=== PATIENT | male | born 1970 | race Caucasian/White ===

== ENCOUNTER 2019-11-29 12:46 | Emergency (ER) | payer OTHER, SELFPAY ==
[2019-11-29 12:56] VITALS: BP 112/68; PULSE 92; RESP 20; TEMP 36.9; O2SAT 100
--- NOTE | 2019-11-29 13:01 | ED.URI ---
HPI - URI/Sore Throat General Chief Complaint: Upper Respiratory Infection Stated Complaint: diarrhea/cough/sneezing Time Seen by Provider: 11/29/19 13:01 Source: patient and RN notes reviewed History of Present Illness HPI Narrative: Patient is a 49-year-old male that presents the urgent care with complaints of diarrhea, sneezing, cough. Patient states his symptoms started on Friday and he is also had some chills and sweats without known fever. Patient denies any abdominal pain, nausea, vomiting. States that he is taking ibuprofen. States that his last bowel movement was at 3 AM. States that his last meal prior to the diarrhea was sandwich and chips. Denies any other acute complaints. No acute distress noted. Patient states his symptoms do seem to be improving. Patient aware of the plan of care. Related Data Home Medications Medication Instructions Recorded Confirmed ibuprofen 200 mg PO Q6H PRN 11/29/19 11/29/19 Allergies Allergy/AdvReac Type Severity Reaction Status Date / Time No Known Allergies Allergy Verified 11/29/19 13:04 Review of Systems Review of Systems: Narrative: CONSTITUTIONAL: Reports of chills and sweats without known fever EYES: Denies visual changes, redness, or discharge. ENT: Reports of rhinorrhea and sneezing CARDIOVASCULAR: Denies chest pain, palpitations, or edema. RESPIRATORY: Reports of cough without dyspnea GASTROINTESTINAL: Reports of diarrhea which seems to be improving; denies abdominal pain, nausea, vomiting GENITOURINARY: Denies dysuria or hematuria. SKIN: Denies rash or itching. MUSCULOSKELETAL: Denies back pain, joint pain, or myalgia. NEUROLOGIC: Denies headache, numbness, or weakness. PMFSH Comments At the time of my signature, I reviewed and agree with the nursing past medical, surgical, social, and family history. There is no relevant family history pertinent to the patient complaint. Exam Narrative: Exam Narrative: GENERAL: This is a well-nourished, well-developed patient, in no apparent distress. HEAD: normocephalic, atraumatic. EYES: PERRL. Sclera clear/white. Vision is grossly intact. EARS: External ears normal, auditory canals clear and without drainage, TMs normal without perforation. Hearing grossly intact. NOSE: External nose normal with no obvious nasal discharge, nares without redness, no rhinorrhea. THROAT: Mucous membranes moist, posterior pharynx clear. NECK: Neck supple CARDIOVASCULAR: Regular rate and rhythm without murmurs, gallops, or rubs. RESPIRATORY: Clear to auscultation. Breath sounds equal bilaterally. No wheezes, rales, or rhonchi. GASTROINTESTINAL: Abdomen soft, mild left lower tenderness, nondistended. Bowel sounds are hyperactive. No hepato-splenomegaly, or palpable masses. No guarding. SKIN: warm, intact with no suspicious lesions or rash, good texture and turgor. NEURO: awake, alert, and oriented to person, place and time. There were no obvious focal neurologic abnormalities. EXTREMITIES: No clubbing, cyanosis, or edema. BACK: Negative bilateral CVA tenderness Course Vital Signs Vital signs: Vital Signs Temperature 98.5 F 11/29/19 12:56 Pulse Rate 92 11/29/19 12:56 Respiratory Rate 11/29/19 12:56 Blood Pressure 112/68 11/29/19 12:56 Pulse Oximetry 100 11/29/19 12:56 Temperature 98.5 F 11/29/19 12:56 Pulse Rate 92 11/29/19 12:56 Respiratory Rate 11/29/19 12:56 Blood Pressure 112/68 11/29/19 12:56 Pulse Oximetry 100 11/29/19 12:56 Reviewed MDM - URI/Sore Throat MDM Narrative Medical decision making narrative: Advised the patient to increase water intake and rest. Eat a bland diet. May use [id number] Imodium as needed for diarrhea. May continue to use [id number] ibuprofen/Tylenol as needed. If you develop any increase in symptoms associated with abdominal pain, persistent diarrhea, nausea, vomiting, high fevers?go to the emergency room. Follow-up with PCP within 2 to 5 days or for wo
== END 2019-11-29 13:28 | disposition home or self-care (01) ==
PROVIDERS: Emergency Provider Nurse Practitioner Family
DX: K52.9 Noninfective gastroenteritis and colitis, unspecified (principal); B34.9 Viral infection, unspecified
CPT/HCPCS: 99211; G0463

== ENCOUNTER 2020-11-16 14:49 | Outpatient (CLI) | payer OTHER, SELFPAY ==
--- NOTE | ~2020-11-16 | XR_ITS ---
EXAMINATION: XR lumbar spine 2-3V DATE: 11/16/2020 16:12 INDICATION: Low back pain TECHNIQUE: Anteroposterior and lateral views of the lumbar spine, and cone-down lateral view of the l umbosacral junction were obtained. COMPARISON: CT dated 03/06/2018 FINDINGS: 2-3 mm retrolisthesis L5 on S1. Unchanged minimal likely physiologic anterior wedging at T12 and L1. Mild disc height loss with mild degenerative endplate changes at T10-11 T12 and T12-L1. Remaining lum bar vertebral body and disc heights are normal. Mild bilateral facet osteoarthritis at L5-S1. Sacrum and bilateral sacral joints are normal. Normal bowel gas pattern. IMPRESSION: 1. No significant change in mild lower thoracic and lumbosacral spondylosis. Reviewed, dictated and finalized at location A. QUOTING OPERATOR
[2020-11-16 15:18] LABS: Anion Gap 7 mmol/L (8-16); Blood Urea Nitrogen 7 mg/dL (9-20); Calcium 9.4 mg/dL (8.4-10.2); Carbon Dioxide 28 mmol/L (22-30); Chloride 104 mmol/L (98-107); Cholesterol 190 mg/dL (0-200); Estimated Glomerular Filt Rate > 60; Glucose 129 mg/dL (75-110); HDL Direct 54 mg/dL; Potassium 3.8 mmol/L (3.4-5.0); Sodium 139 mmol/L (137-145); Triglycerides 97 mg/dL (<150)
[2020-11-16 15:29] LABS: LDL Cholesterol Direct 123 mg/dL
== END 2020-11-16 14:50 | disposition home or self-care (01) ==
PROVIDERS: PCP Family Medicine; Visit Provider Nurse Practitioner Family
DX: Z13.1 Encounter for screening for diabetes mellitus (principal); Z13.220 Encounter for screening for lipoid disorders; M47.896 Other spondylosis, lumbar region
CPT/HCPCS: 36415; 72100; 80048; 80061

== ENCOUNTER → 2020-11-29 11:15 | Outpatient (CLI) | payer OTHER, SELFPAY ==
--- NOTE | ~2020-11-29 | MR_ITS ---
EXAMINATION: MR lumbar spine wo con DATE: 11/29/2020 11:51 INDICATION: Low back pain. TECHNIQUE: Magnetic resonance imaging (MRI) of the lumbar spine was performed without intravenous con trast. Sequences included sagittal T2-weighted FSE, sagittal T2-weighted FS FSE, sagittal T1-weighted FSE, and axial T2-weighted FSE. COMPARISON: Lumbar spine radiographs 11/16/2020 FINDINGS: There is 5 degrees dextrocurvature of thoracolumbar spine. There are Schmorl's nodes at T11 -T12 and T12-L1. Intervertebral disc heights are normal in lumbar spine. The distal spinal cord signa l intensity is normal. The conus medullaris is at L1. The following disc levels are specifically disc ussed: L1-L2: The disc does not extend beyond the endplate margin. There is mild bilateral facet joint osteo arthritis. There is no neural foraminal stenosis. There is no central canal stenosis. L2-L3: The disc does not extend beyond the endplate margin. There is no facet joint osteoarthritis. T here is no neural foraminal stenosis. There is no central canal stenosis. L3-L4: The disc does not extend beyond the endplate margin. There is mild left facet joint osteoarthr itis. There is no neural foraminal stenosis. There is no central canal stenosis. L4-L5: The disc is mildly bulging. There is severe bilateral facet joint osteoarthritis. There is mil d bilateral neural foraminal stenosis. There is no central canal stenosis. L5-S1: The disc does not extend beyond the endplate margin. There is moderate bilateral facet joint o steoarthritis. There is mild bilateral neural foraminal stenosis. There is no central canal stenosis. IMPRESSION: 1. Mild lumbar spondylosis. Reviewed, dictated and finalized at location A. D LEADER IMPRESSION: 1. Mild lumbar spondylosis.
== END ==
PROVIDERS: PCP Family Medicine; Visit Provider Nurse Practitioner Family
DX: M47.896 Other spondylosis, lumbar region (principal)
CPT/HCPCS: 72148

== ENCOUNTER 2022-07-16 15:52 | Emergency (ER) | payer OTHER, SELFPAY ==
--- NOTE | ~2022-07-16 | CT_ITS ---
EXAMINATION: CT abdomen pelvis wo con DATE: 07/16/2022 17:50 INDICATION: left flank pain TECHNIQUE: Computed tomography (CT) of the abdomen and pelvis was performed without intravenous contr ast. Automated exposure control and iterative reconstruction technique were employed. The dose-length product was 301.65 mGy-cm. COMPARISON: 03/06/2018. FINDINGS: Lower thorax: Unremarkable Liver: Enlarged. Fatty infiltration. Biliary/Gallbladder: Gallbladder is normal. No bile duct dilation. Pancreas: No mass or duct dilation. Spleen: Normal. Adrenals:No mass. Kidneys: Nonobstructive 3 mm mid pole right and punctate upper pole left calculi. No suspicious mass. No hydronephrosis. GI tract: No small or large bowel dilation. Normal appendix. Mesentery/Peritoneum: No ascites, mass, or free air. Retroperitoneum: No mass. Atherosclerotic abdominal aortic and/or arterial calcifications. Pelvis: Pelvic organs are within normal limits. Soft Tissues: Soft tissues and body wall unremarkable. Bones: No acute osseous finding. IMPRESSION: No CT evidence of obstructive uropathy. Hepatomegaly. Nonobstructive nephrolithiasis. Steatosis. Reviewed, dictated and finalized at location K. IMPRESSION: No CT evidence of obstructive uropathy. Hepatomegaly. Nonobstructive nephrolith iasis. Steatosis.
[2022-07-16 15:58] VITALS: BP 147/90; PULSE 87; RESP 14; TEMP 36.6; O2SAT 99
[2022-07-16 16:16] LABS: Basophils Absolute Auto 0.1 K/mm3 (0.0-0.1); Basophils Percent Auto 0.7 % (0.2-1.2); Eosinophils Absolute Auto 0.1 K/mm3 (0-0.3); Eosinophils Percent Auto 1.3 % (0-4.4); Immature Granulocyte Absolute 0.03 K/mm3 (0.00-0.031); Immature Granulocyte Percent A 0.4 % (0-0.5); Lymphocytes Percent Auto 39.5 % (18.3-44.2); Mean Corpuscular HGB Conc 34.8 g/dl (32-36); Mean Corpuscular Hemoglobin 38.4 pg (26-34); Mean Corpuscular Volume 110.3 fl (80-100); Mean Platelet Volume 9.8 fl (7.4-10.4); Monocytes Absolute Auto 0.6 K/mm3 (0.1-0.6); Monocytes Percent Auto 7.8 % (2.6-8.5); Neutrophils Absolute Auto 3.6 K/mm3 (1.3-6.7); Neutrophils Percent Auto 50.3 % (45.5-73.1); Platelet Count Result 254 k/mm3 (150-375); Red Blood Count 4.17 M/mm3 (4.6-6.20); Red Cell Distribution Width 12.7 % (11.5-14.5); White Blood Count 7.1 K/mm3 (4.5-10.0)
[2022-07-16 16:28] LABS: Alanine Aminotransferase 49 U/L (6-50); Albumin Level 4.6 g/dL (3.5-5.1); Alkaline Phosphatase 79 U/L (38-126); Anion Gap 14 mmol/L (8-16); Aspartate Amino Transferase 49 U/L (17-59); Blood Urea Nitrogen 5 mg/dL (9-20); Calcium 9.3 mg/dL (8.4-10.2); Carbon Dioxide 18 mmol/L (22-30); Chloride 107 mmol/L (98-107); Estimated CRCL calculation 74 ml/min; Estimated Glomerular Filt Rate > 60; Glucose 157 mg/dL (65-110); Potassium 3.5 mmol/L (3.4-5.0); Sodium 139 mmol/L (137-145)
[2022-07-16 16:42] LABS: Appearance Urine Clear (Clear); Bilirubin Urine 1+ (Negative); Blood Urine 1+ (Negative); Color Urine Yellow (Yellow); Glucose Urine UA Negative (Negative); Ketones Urine Negative (Negative); Leukocyte Esterase Ur Negative LEU/UL (Negative); Nitrate Urine Negative (Negative); Protein Urine 1+ mg/dL (Negative); Specific Grav Ur 1.025 (1.001-1.035); pH Urine 5.5 (5.0-9.0)
[2022-07-16 16:57] LABS: Mucus Urine Few /lpf; Squamous Epithelial Cell Urine Rare /hpf (Few); WBC Urine 0-3 /hpf
[2022-07-16 17:03] LABS: Add Urine Microscopic? YES
--- NOTE | 2022-07-16 17:29 | ED.BACK ---
HPI - Back Pain/Injury General Chief Complaint: Back Pain/Injury Stated Complaint: Left Flank Pain Time Seen by Provider: 07/16/22 17:25 History of Present Illness HPI Narrative: 51-year-old male with a history of kidney stones presents the emergency room for evaluation of left flank pain has been present for 4 days. Patient states there is no radiation pain and does not remember any injury or trauma. States the pain is worse with certain movements. Denies any decreased urination or difficulty voiding. Related Data Home Medications Medication Instructions Recorded Confirmed ibuprofen 200 mg tablet 800 mg PO Q6H PRN Pain 11/16/20 11/16/20 Allergies Allergy/AdvReac Type Severity Reaction Status Date / Time No Known Allergies Allergy Verified 07/16/22 17:36 Review of Systems Review of Systems: CONSTITUTIONAL: Denies fever, chills, or sweats. EYES: Denies visual changes, redness, or discharge. ENT: Denies rhinorrhea, congestion, sore throat, or otalgia. CARDIOVASCULAR: Denies chest pain, palpitations, or edema. RESPIRATORY: Denies cough or dyspnea. GASTROINTESTINAL: Reports left flank pain GENITOURINARY: Denies dysuria or hematuria. SKIN: Denies rash or itching. MUSCULOSKELETAL: Denies back pain, joint pain, or myalgia. NEUROLOGIC: Denies headache, numbness, dizziness, or weakness. PSYCHIATRIC: Denies anxiety or depression. PMFSH Past Medical History Medical History PTSD (post-traumatic stress disorder) Family History Family History Father No problems noted. Mother No problems noted. Sibling No problems noted. Social History Social History Smoking packs per day: 1 Smoking cigarettes per day: 20.0 Years smoked: 33 Smoking pack-years: 33.00 Smoking status: Current every day smoker Tobacco type: cigarettes Second hand tobacco smoke exposure: No Alcohol intake: current Substance use: never Additional occupation/education comments: Gender identity (if verbalized by the patient): Male Exam Narrative: GENERAL: Well-appearing, well-nourished, no physical limitations, and in no acute distress. HEAD: Normocephalic, atraumatic. EYES: Conjunctivae normal, PERRLA and EOMI. CHEST: Clear to auscultation. No respiratory distress. No wheezes rales or rhonchi. No tenderness. HEART: Regular rate and rhythm. No murmur heard. Normal peripheral pulses. ABDOMEN: Soft, no tenderness, nondistended, normal active bowel sounds. : Normal external male/female exam. BACK: No midline lumbar tenderness, no step-offs or range of motion. Tenderness over the left thoracolumbar fascia and paralumbar spinal muscles EXTREMITIES: Normal range of motion. No edema. No clubbing or cyanosis SKIN: Warm, dry, no rash. No noted wounds NEURO: No focal deficits. Alert and oriented x3. MAEW. CN's II-XI intact bilaterally, normal gait PSYCH: Cooperative. Normal mood and affect. Course Vital Signs Vital signs: Vital Signs Temperature 36.6 C 07/16/22 15:58 Pulse Rate 87 07/16/22 15:58 Respiratory Rate 14 07/16/22 15:58 Blood Pressure 147/90 H 07/16/22 15:58 Pulse Oximetry 99 07/16/22 15:58 Oxygen Delivery Room Air 07/16/22 15:58 Temperature 36.6 C 07/16/22 15:58 Pulse Rate 87 07/16/22 15:58 Respiratory Rate 14 07/16/22 15:58 Blood Pressure 147/90 H 07/16/22 15:58 Pulse Oximetry 99 07/16/22 15:58 Oxygen Delivery Room Air 07/16/22 15:58 MDM - Back Pain/Injury MDM Narrative Medical decision making narrative: 51-year-old male presents emergency room low back pain for 4 days. States the pain was worse with movement. He does have a significant history of kidney stones. CT scan shows no obstructive uropathy. Urine did show some hematuria, this could be from recently passed stone. We
[2022-07-16 18:31] VITALS: BP 122/79; PULSE 95; RESP 16; TEMP 36.8; O2SAT 99
== END 2022-07-16 18:34 | disposition home or self-care (01) ==
PROVIDERS: Emergency Medicine; Emergency Provider Nurse Practitioner Family; PCP Family Medicine
DX: M54.50 Low back pain, unspecified (principal); R31.9 Hematuria, unspecified; F17.210 Nicotine dependence, cigarettes, uncomplicated
CPT/HCPCS: 36415; 74176; 80053; 81001; 85025; 99284

== ENCOUNTER 2022-07-24 10:52 | Outpatient (CLI) | payer OTHER, SELFPAY ==
[2022-07-24 11:22] LABS: Basophils Percent Auto 0.5 % (0.2-1.2); Eosinophils Absolute Auto 0.1 K/mm3 (0-0.3); Eosinophils Percent Auto 1.9 % (0-4.4); Hematocrit 45.4 % (42.0-52.0); Hemoglobin 15.5 g/dL (14.0-18.0); Immature Granulocyte Absolute 0.02 K/mm3 (0.00-0.031); Immature Granulocyte Percent A 0.3 % (0-0.5); Lymphocytes Absolute Auto 2.21 K/mm3 (0.9-3.2); Lymphocytes Percent Auto 37.8 % (18.3-44.2); Mean Corpuscular HGB Conc 34.1 g/dl (32-36); Mean Corpuscular Hemoglobin 38.4 pg (26-34); Mean Corpuscular Volume 112.4 fl (80-100); Mean Platelet Volume 9.8 fl (7.4-10.4); Monocytes Absolute Auto 0.5 K/mm3 (0.1-0.6); Monocytes Percent Auto 9.2 % (2.6-8.5); Neutrophils Absolute Auto 2.9 K/mm3 (1.3-6.7); Neutrophils Percent Auto 50.3 % (45.5-73.1); Platelet Count Result 202 k/mm3 (150-375); Red Blood Count 4.04 M/mm3 (4.6-6.20); Red Cell Distribution Width 12.7 % (11.5-14.5); White Blood Count 5.8 K/mm3 (4.5-10.0)
[2022-07-24 11:55] LABS: Alanine Aminotransferase 41 U/L (6-50); Albumin Level 4.5 g/dL (3.5-5.1); Alkaline Phosphatase 69 U/L (38-126); Anion Gap 10 mmol/L (8-16); Aspartate Amino Transferase 38 U/L (17-59); Bilirubin,Total 0.9 mg/dL (0.2-1.3); Blood Urea Nitrogen 9 mg/dL (9-20); Calcium 9.3 mg/dL (8.4-10.2); Carbon Dioxide 21 mmol/L (22-30); Chloride 108 mmol/L (98-107); Cholesterol 223 mg/dL (0-200); Estimated Glomerular Filt Rate > 60; Glucose 142 mg/dL (65-110); HDL Direct 53 mg/dL; Hemoglobin A1C 4.9 % (<5.7); Potassium 3.9 mmol/L (3.4-5.0); Sodium 139 mmol/L (137-145); Triglycerides 132 mg/dL (<150)
[2022-07-24 11:59] LABS: LDL Cholesterol Direct 156 mg/dL
[2022-07-24 12:22] LABS: Prostate Specific Antigen 0.8 ng/mL (< OR = 4.0)
== END 2022-07-24 10:53 | disposition home or self-care (01) ==
PROVIDERS: PCP Family Medicine; Visit Provider Nurse Practitioner Family
DX: K76.0 Fatty (change of) liver, not elsewhere classified (principal); Z72.0 Tobacco use; R73.09 Other abnormal glucose; Z13.29 Encounter for screening for other suspected endocrine disorder; Z12.5 Encounter for screening for malignant neoplasm of prostate
CPT/HCPCS: 36415; 80053; 80061; 83036; 84153; 84443; 85025; G0103

== ENCOUNTER 2022-12-07 11:30 | Inpatient (IN) | payer OTHER, SELFPAY ==
--- NOTE | ~2022-12-07 | CT_ITS ---
EXAMINATION: CTA chest abdomen pelvis DATE: 12/07/2022 12:10 INDICATION: Severe abdominal pain TECHNIQUE: Computed tomographic angiography (CTA) of the chest, abdomen, and pelvis was performed wit hout and with 100 mL Omnipque-350 intravenous contrast. Maximum intensity projection 3D-reconstructio ns of the aorta and other arteries were constructed by the technologist on a separate workstation. Th e dose-length product (DLP) was 1008.84 mGy-cm. Automated exposure control and iterative reconstructi on technique were employed. COMPARISON: None. FINDINGS: CHEST CTA: There is no aneurysm or dissection of the thoracic aorta. There is mild dependent atelectasis of the lungs. No pleural effusion or pneumothorax. No pathologically enlarged thoracic lymph nodes are ident ified. The heart size is normal. ABDOMEN AND PELVIS CTA: There is no aneurysm or dissection of the abdominal aorta. The celiac axis, superior mesenteric arter y, and inferior mesenteric artery are normal at their origins. There are two left and one right renal arteries. There is calcified atherosclerosis of the distal aorta. There is mild atherosclerosis of t he bilateral common and internal iliac arteries without hemodynamically significant stenosis. The pel zehra vasculature is otherwise unremarkable. The liver, spleen, gallbladder, and adrenal glands are normal. There is decreased enhancement in the head and body of the pancreas. There is peripancreatic fluid extending into the anterior pararenal sp aces and perisplenic space. The kidneys are unremarkable. No pathologically enlarged abdominal or pel zehra lymph nodes are identified. No free intraperitoneal gas or evidence of bowel obstruction. The bill endix is normal. IMPRESSION: 1. Acute pancreatitis, likely interstitial edematous with acute peripancreatic fluid collection. Hypo enhancement of the head and body of the pancreas could be due to edema however early pancreatic necro sis is not excluded. Follow-up is recommended. Reviewed, dictated and finalized at location A. ING LEAD BURNER IMPRESSION: 1. Acute pancreatitis, likely interstitial edematous with acute peripancreatic fluid collection. Hypoenhancement of the head and body of the pancreas could be due to edema however early pancreatic necrosis is not excluded. Follow-up is r ecommended.
--- NOTE | ~2022-12-07 | CT_ITS ---
CT Abdomen and Pelvis with contrast. History: Pancreatitis. Spiral CT of the abdomen and pelvis was performed after the administration of intravenous contrast. 1 00 cc of Omnipaque 350 was administered intravenously without complication. Dose reduction technique was used on this scan by utilizing automated exposure control and iterative reconstruction technique. The dose-length product (DLP) was 1093.65 mGy-cm. COMPARISON: 12/07/2022 Findings: Scans through the lung bases demonstrate [id number] bilateral pleural effusions with mild bibasilar atelectatic change. Minimal groundglass opacity in the lingula and right middle lobe could reflect minimal pulmonary edema. There is extensive peripancreatic fluid and inflammatory change, compatible with acute pancreatitis. There is marked hypoenhancement extensively involving the pancreatic head, neck, and proximal body, c onsistent with pancreatic necrosis in these regions. There is a somewhat more confluent area of fluid along the greater curvature of the stomach, which could reflect an early developing pseudocyst, this area of fluid measuring approximately 7.3 x 6.9 cm in extent (axial image 52 for example). No defini te pseudoaneurysm identified. Fluid extends into the bilateral paracolic gutters, and into the pelvis . There is diffuse fatty infiltration of the liver. There is probable vicarious excretion of contrast i nto the gallbladder from prior contrast enhanced exam. The spleen, adrenals and kidneys are within no rmal limits. No evidence of aortic aneurysm. No lymphadenopathy is seen. There are numerous dilated small bowel loops, likely representing reactive ileus. No free air evident . Images through the pelvis were performed. Urinary bladder unremarkable. Prostate gland and seminal ve sicles are unremarkable. 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 More confluent area of fluid along the greater curvature the stomach measuring 7.3 x 6.9 cm, which co uld reflect an early developing pseudocyst. Multiple dilated small bowel loops, most likely representing reactive ileus. Associated small amount of abdominopelvic ascites. Oewle-dh-pwxpdeov bilateral pleural effusions. Diffuse fatty infiltration of the liver. Reviewed, dictated and finalized at location [facility]. [employer] Impression: Acute pancreatitis with extensive pancreatic necrosis of the pancreatic head, n yuri, and proximal body. More confluent area of fluid along the greater curvature the stomach measuring 7.3 x 6.9 cm, which could reflect an early developing pseudocyst. Multiple dilated small bowel loops, most likely representing reactive ileus. Associated small amount of abdominopelvic ascites. Bqrfg-ri-oyygafws bilateral pleural effusions. Diffuse fatty infiltration of the liver.
[2022-12-07 11:31] VITALS: BP 128/69; PULSE 85; RESP 18; TEMP 36.4; O2SAT 100
--- NOTE | 2022-12-07 11:34 | ECG_ITS ---
Measurements Intervals [place] Rate: 81 P: 52 NV: 167 QRS: 26 QRSD: 94 T: 50 QT: 384 QTc: 447 Interpretive Statements SINUS RHYTHM LOW QRS VOLTAGE IN PRECORDIAL LEADS [QRS DEFLECTION < 1.0 mV IN CHEST LEADS] ABNORMAL ECG NO PREVIOUS ECG AVAILABLE FOR COMPARISON Electronically Signed On 12-07-2022 12:50:48 PUBLIC AFFAIRS DIRECTOR by Douglas Guajardo M.D.
[2022-12-07 11:44] LABS: Basophils Absolute Auto 0.1 K/mm3 (0.0-0.1); Basophils Percent Auto 0.3 % (0.2-1.2); Eosinophils Absolute Auto 0.1 K/mm3 (0-0.3); Eosinophils Percent Auto 0.4 % (0-4.4); Hemoglobin 15.5 g/dL (14.0-18.0); Immature Granulocyte Absolute 0.07 K/mm3 (0.00-0.031); Immature Granulocyte Percent A 0.4 % (0-0.5); Lymphocytes Absolute Auto 4.18 K/mm3 (0.9-3.2); Lymphocytes Percent Auto 23.6 % (18.3-44.2); Mean Corpuscular HGB Conc 34.4 g/dl (32-36); Mean Corpuscular Hemoglobin 36.2 pg (26-34); Mean Corpuscular Volume 105.1 fl (80-100); Mean Platelet Volume 9.9 fl (7.4-10.4); Monocytes Percent Auto 5.5 % (2.6-8.5); Neutrophils Absolute Auto 12.3 K/mm3 (1.3-6.7); Neutrophils Percent Auto 69.8 % (45.5-73.1); Platelet Count Result 249 k/mm3 (150-375); Red Blood Count 4.28 M/mm3 (4.6-6.20); Red Cell Distribution Width 13.8 % (11.5-14.5); White Blood Count 17.7 K/mm3 (4.5-10.0)
[2022-12-07] MEDS: MORPHINE SULFATE (*CRX) 4 MG/ML INJ IV PUSH ×2 (11:50→15:06)
[2022-12-07] MEDS: FAMOTIDINE 20 MG/2 ML VIAL IV PUSH ×2 (11:50→20:35)
[2022-12-07] MEDS: ONDANSETRON INJ 4 MG/2 ML VIAL IV PUSH (11:50)
[2022-12-07 11:57] LABS: Alanine Aminotransferase 27 U/L (6-50); Albumin Level 4.5 g/dL (3.5-5.1); Alkaline Phosphatase 73 U/L (38-126); Anion Gap 11 mmol/L (8-16); Aspartate Amino Transferase 34 U/L (17-59); Bilirubin,Total 0.5 mg/dL (0.2-1.3); Blood Urea Nitrogen 5 mg/dL (9-20); Calcium 8.7 mg/dL (8.4-10.2); Carbon Dioxide 20 mmol/L (22-30); Chloride 107 mmol/L (98-107); Estimated Glomerular Filt Rate > 60; Glucose 148 mg/dL (65-110); Potassium 3.1 mmol/L (3.4-5.0); Sodium 138 mmol/L (137-145)
[2022-12-07 12:10] LABS: Platelet Estimate Adequate (Adequate)
[2022-12-07 12:11] LABS: Anisocytosis 1+ (NORMAL); Schistocytes None Seen (NORMAL)
[2022-12-07 12:12] LABS: Lactic Acid Reflex 4.7 mmol/L (0.7-2.0)
--- NOTE | 2022-12-07 12:16 | ED.ABDPAIN ---
HPI - Abdominal Pain General Chief Complaint: Abdominal Pain Stated Complaint: ABD PAIN, EPIGASTRIC X 30 MIN , 1 EMESIS Time Seen by Provider: 12/07/22 11:34 History of Present Illness HPI narrative: Patient with no medical history presents with severe sudden onset pain to his epigastric area, he has never had symptoms like this in the past, did have an episode of nausea and soft stool. No personal or family history of dissection or aneurysm or arrhythmias. Related Data Allergies Allergy/AdvReac Type Severity Reaction Status Date / Time No Known Allergies Allergy Verified 07/24/22 07:47 Review of Systems Review of Systems: CONST: No fever. HEENT: No sore throat C/V: No chest pain RESP: No cough GI: Reports abdominal pain, nausea, vomiting : No dysuria. M/S: No joint pain. SKIN: No rash. NEURO: [No headache or focal numbness or weakness] PSYCH: [No depression] [facility] Past Medical History Medical History BMI 30.0-30.9,adult PTSD (post-traumatic stress disorder) Family History Family History Father No problems noted. Mother No problems noted. Sibling Hypertension Asthma Social History Social History Smoking packs per day: 1 Smoking cigarettes per day: 20.0 Years smoked: 33 Smoking pack-years: 33.00 Smoking status: Current every day smoker Tobacco type: cigarettes Second hand tobacco smoke exposure: No Alcohol intake: current Substance use: never Substance use type: does not use Living arrangements: with family Occupation/Education: retired Additional occupation/education comments: -[employer] Gender identity (if verbalized by the patient): Male Exam Narrative: EXAMINATION OF ORGAN SYSTEMS/BODY AREAS: Constitutional: Vital signs per nursing GENERAL: Appears to be extremely uncomfortable HEAD: Normal with no signs of head trauma. EYES: EOMI, conjunctiva normal ENT: Hearing grossly intact LUNGS: Nonlabored breathing. HEART: [Regular rate and rhythm] ABD: [Soft], [tender to palpation] to epigastric area and periumbilical region EXT: Normal range of motion SKIN: [No rashes or lesions.] NEURO: [Alert and oriented x 3. No gross focal sensory or strength deficits.] PSYCH: Normal affect Course Vital Signs Vital signs: Vital Signs Temperature 97.6 F 12/07/22 11:31 Pulse Rate 85 12/07/22 11:31 Respiratory Rate 18 12/07/22 11:31 Blood Pressure 128/69 12/07/22 11:31 Pulse Oximetry 100 12/07/22 11:31 Oxygen Delivery Room Air 12/07/22 11:31 Temperature 97.6 F 12/07/22 11:31 Pulse Rate 85 12/07/22 11:31 Respiratory Rate 18 12/07/22 11:31 Blood Pressure 139/82 12/07/22 15:06 Pulse Oximetry 100 12/07/22 15:06 Oxygen Delivery Room Air 12/07/22 11:31 MDM - Abdominal Pain MDM Narrative Medical decision making narrative: Electronic medical record was reviewed. Patient presented to the ED with complaint of [abdominal pain and vomiting]. Vitals [were within acceptable limits]. Physical exam revealed [tenderness to palpation in epigastric and periumbilical abdomen]. Based on the patient's history and physical exam, my differential includes but is not limited to [gastritis, gastroenteritis, cholecystitis, pancreatitis, as well as mesenteric ischemia and dissection given severity of symptoms]. [IV access was established by nursing staff. Patient was given zofran, famotidine, morphine, and IV fluids]. CBC, BMP, lipase, LFTs, bilirubin and alk phos were obtained. Labs were pertinent for lipase >40k, WBC 18, K 3.1 which is repleted, lactic 4.7. [Decision was made to obtain a CT-abdomen to evaluate for acute abdominal process. I did review it indepedently and CT-abdomen per my and radiology interpretation showing acute pancreatitis with fluid collection, and possible necrosis.] I suspe
[2022-12-07] MEDS: LACTATED RINGERS 1,000 ML 999 ML IV CONT ×2 (12:39→16:57)
[2022-12-07 12:43] LABS: Lipase > 40000 U/L (23-300)
[2022-12-07] MEDS: HYDROmorphone HCL INJ (*CRX) 1 MG/ML SYR IV PUSH ×3 (12:43→23:48)
[2022-12-07 12:47] LABS: Magnesium 1.9 mg/dL (1.6-2.3)
[2022-12-07] MEDS: POTASSIUM CHLORIDE INJ 40 MEQ in SODIUM CHLORIDE 0.9% IV 500 ML 130 MEQ IVPB (13:00)
[2022-12-07 13:39] LABS: Influenza A QL RT-PCR Negative (Negative); Influenza B QL RT-PCR Negative (Negative); RSV RNA, RT-PCR Negative (Negative); SARS-CoV-2 RNA PCR Negative
[2022-12-07 14:58] LABS: Reflex Lactic Acid Yes or No Add Lactic
[2022-12-07 15:06] VITALS: BP 139/82; O2SAT 100
[2022-12-07 15:16] VITALS: BP 142/81; O2SAT 99
[2022-12-07 15:31] VITALS: BP 150/81; O2SAT 100
[2022-12-07 16:09] LABS: Lactic Acid 4.7 mmol/L (0.7-2.0)
--- NOTE | 2022-12-07 16:15 | PM.IMHP ---
H&P: HPI History of Present Illness Date/Time: 12/07/22 16:15 Chief Complaint: abdominal pain Narrative: This is a 52-year-old male patient has a history of alcohol abuse. This morning he woke up with severe pain to use epigastric area. The patient stated that he could sleep in got up around 2 or 3 this morning. He started drinking today and that is when the pain started. His white count is 17.7. MCV is 105.1. Potassium is 3.1 he is getting replacement at this time. Lactic is 4.7 and repeat was 4.7. Glucose 148. Lipase greater than 40,000. Influenza A/B COVID RSV are all negative. The patient was given Zofran, Pepcid IV, morphine, lactated Ringer's, and potassium chloride iv. CT of the abdomen pelvis CTA was read as the following. Acute pancreatitis, likely interstitial edematous with acute peripancreatic fluid collection. Hypoenhancement of the head and body of the pancreas could be due to edema however early pancreatic necrosis is not excluded. Follow-up is recommended. The ED provider stated that she did call [facility] surgeon as well as the hospitalist and that the patient could be treated here. [facility] sandi was notified and discussed case with ER provider. The patient was accepted for admission the patient is being admitted to inpatient status on the date of service of 12/07/2022. Review of Systems Review of Systems: see HPI All systems reviewed & are unremarkable except as noted in HPI and below Constitutional: Constitutional: Reports as per HPI and Reports no additional constitutional complaints Eyes: Eyes: Reports as per HPI and Reports no additional eye complaints ENT: Reports system reviewed and no additional complaints, except as documented and Reports Normal hearing present Cardiovascular: Cardiovascular: Reports no additional cardiovascular complaints Respiratory: Respiratory: Reports no additional respiratory complaints and Reports no additional respiratory complaints Gastrointestinal: Gastrointestinal: Reports as per HPI and Reports no additional gastrointestinal complaints Musculoskeletal: Musculoskeletal: Reports no additional musculoskeletal complaints Integumentary/Breasts: Skin/Breast: Reports system reviewed and no additional complaints, except as docu and Reports as per HPI Neurologic: Reports system reviewed and no additional complaints, except as documented, Reports as per HPI and Reports Normal hearing present Psychiatric: Psychiatric: Reports no additional psychiatric complaints and Reports as per HPI Endocrine: Endocrine: Reports no additional endocrine complaints Hematologic/Lymphatic: Hematologic/Lymphatic: Reports no additional hematologic/lymphatic complaints Allergic/Immunologic: Allergic/Immunologic: Reports no additional allergic/immunologic complaints [facility] Past Medical History Medical History (Updated 12/07/22 @ 19:02 by Angelika Mcintyre NP) Alcoholism BMI 30.0-30.9,adult Kidney stone PTSD (post-traumatic stress disorder) Surgical History Surgical History H/O lithotripsy Status post tonsillectomy and adenoidectomy Family History Family History Father No problems noted. Mother No problems noted. Sibling Hypertension Asthma Social History Social History (Updated 12/07/22 @ 19:05 by Angelika Mcintyre NP) Social History: He has two children and is . The patient served in the [employer] and has PTSD now. The patient stated that he drinks every day according to the nurse. However the patient tells me that he might drink 10-12 alcoholic beverages when he drinks. He told me he does not drink every day. Code status full code Smoking packs per day: 1 Smoking cigarettes per day: 20.0 Years smoked: 33 Smoking pack-years: 33.00 Smoking status: Current every day smoker Tobacco type: cigarettes Second hand tobacco smoke exposure: No Al
[2022-12-07] MEDS: diphenhydrAMINE HCl INJ 50 MG/ML VIAL 25 MG IV PUSH (16:42)
[2022-12-07] MEDS: KETOROLAC 30 MG/ML VIAL (*BKC) IV PUSH (16:42)
[2022-12-07] MEDS: LACTATED RINGERS 1,000 ML 125 ML IV CONT ×2 (17:22→23:49)
[2022-12-07 17:23] VITALS: BMI 30.7
--- NOTE | 2022-12-07 18:09 | PC.NURSE ---
pt states that he does not take any medications prescription or OTC
[2022-12-07 20:00] VITALS: PULSE 95
[2022-12-07 22:00] VITALS: BP 154/78; PULSE 87; RESP 14; TEMP 35.6; O2SAT 99
[2022-12-08] VITALS (9 sets, daily range): BP systolic 132–155; BP diastolic 90–91; PULSE 86–126; RESP 14–20; TEMP 36.5–36.6; O2SAT 93–97
[2022-12-08 02:29] LABS: Glucose Point of Care 172 mg/dl (65-105)
[2022-12-08] MEDS: HYDROmorphone HCL INJ (*CRX) 1 MG/ML SYR IV PUSH ×4 (06:40→20:28)
[2022-12-08 08:09] LABS: Basophils Percent Auto 0.2 % (0.2-1.2); Hemoglobin 16.4 g/dL (14.0-18.0); Immature Granulocyte Absolute 0.06 K/mm3 (0.00-0.031); Immature Granulocyte Percent A 0.3 % (0-0.5); Lymphocytes Absolute Auto 0.94 K/mm3 (0.9-3.2); Lymphocytes Percent Auto 5.1 % (18.3-44.2); Mean Corpuscular HGB Conc 33.5 g/dl (32-36); Mean Corpuscular Volume 107.7 fl (80-100); Mean Platelet Volume 10.6 fl (7.4-10.4); Monocytes Percent Auto 5.5 % (2.6-8.5); Neutrophils Absolute Auto 16.5 K/mm3 (1.3-6.7); Neutrophils Percent Auto 88.9 % (45.5-73.1); Platelet Count Result 170 k/mm3 (150-375); Red Blood Count 4.55 M/mm3 (4.6-6.20); Red Cell Distribution Width 14.2 % (11.5-14.5); White Blood Count 18.5 K/mm3 (4.5-10.0)
[2022-12-08 08:26] LABS: Albumin Level 3.8 g/dL (3.5-5.1); Alkaline Phosphatase 62 U/L (38-126); Anion Gap 8 mmol/L (8-16); Aspartate Amino Transferase 58 U/L (17-59); Bilirubin,Total 1.4 mg/dL (0.2-1.3); Calcium 8.1 mg/dL (8.4-10.2); Carbon Dioxide 19 mmol/L (22-30); Chloride 110 mmol/L (98-107); Estimated CRCL calculation 76 ml/min; Estimated Glomerular Filt Rate > 60; Glucose 151 mg/dL (65-110); Magnesium 1.4 mg/dL (1.6-2.3); Phosphorus 2.6 mg/dL (2.5-4.5); Potassium 5.8 mmol/L (3.4-5.0); Sodium 137 mmol/L (137-145)
[2022-12-08 08:27] LABS: Blood Urea Nitrogen 13 mg/dL (9-20)
[2022-12-08 08:29] LABS: Lactic Acid Reflex 4.9 mmol/L (0.7-2.0)
[2022-12-08 08:33] LABS: Alanine Aminotransferase 41 U/L (6-50)
[2022-12-08 09:03] LABS: Lipase 7222 U/L (23-300)
[2022-12-08 09:49] LABS: Free T4 Free Thyroxine Reflex 1.15 ng/dL (0.78-2.19)
[2022-12-08] MEDS: LACTATED RINGERS 1,000 ML 125 ML IV CONT (10:37)
[2022-12-08] MEDS: FAMOTIDINE 20 MG/2 ML VIAL IV PUSH ×2 (10:40→20:29)
[2022-12-08] MEDS: LORazepam INJ (*CRX) 2 MG/ML VIAL 1 MG IV PUSH (10:40)
[2022-12-08] MEDS: THIAMINE HCL 200 MG/2 ML VIAL 100 MG IV PUSH (10:40)
[2022-12-08] MEDS: FOLIC ACID 1 MG/0.2 ML INJ IV PUSH (10:40)
[2022-12-08 11:03] LABS: Reflex Lactic Acid Yes or No Add Lactic
[2022-12-08] MEDS: LACTATED RINGERS 1,000 ML 150 ML IV CONT ×2 (11:30→18:15)
[2022-12-08 11:34] LABS: Lactic Acid 4.5 mmol/L (0.7-2.0)
[2022-12-08 12:08] LABS: Glucose Point of Care 179 mg/dl (65-105)
[2022-12-08] MEDS: metroNIDAZOLE 500 MG/ISO 100ML 500 MG/100 ML BAG 100 MG IVPB ×2 (14:17→22:37)
--- NOTE | 2022-12-08 15:33 | PM.IMPN ---
Progress Note: A&P Assessment and Plan (1) Acute alcoholic pancreatitis: Code(s): K85.20 - Alcohol induced acute pancreatitis without necrosis or infection Status: Acute Plan Acute pancreatitis with possible infected necrosis and peripancreatic fluid collection Lipase 40k on admission and CT report reviewed NPO, Continue IVF, contineu Levaquin and Flagyl PRN pain control GI and Gen sugery consulted Alcohol abuse continue CIWA protocol Counseled Tobacco abuse Counseled about cessaiton Hypokalemia replaced, serum mag monitor DVT prophylaxis Subjective Date/time seen: 12/08/22 15:33 Patient presented to the ER with abd pain and vomiting, CT AP in the ER showed pacreatitis with possible necrosis and peripancreatic fluid collection. GI and Gen Surgery consulted. Lacitc acid this morning elevated and patient started on Levaquin and Flagyl. Exam Narrative: GENERAL: Appears to be extremely uncomfortable HEAD:? Normal with no signs of head trauma. EYES:? EOMI, conjunctiva normal ENT:? Hearing grossly intact LUNGS:? Nonlabored breathing. HEART:? [Regular rate and rhythm] ABD:? [Soft], [tender to palpation] to epigastric area and periumbilical region EXT: Normal range of motion SKIN:? [No rashes or lesions.] NEURO: [Alert and oriented x 3. No gross focal sensory or strength deficits.] PSYCH: Normal affect Objective Data Vital Signs Vital Signs: Vital Signs - 24 hr 12/07/22 18:02 12/07/22 20:00 12/08/22 00:00 Temperature Pulse Rate 86 Pulse Rate [Right Monitor] 95 Respiratory Rate Blood Pressure Pulse Oximetry Oxygen Delivery Room Air 12/08/22 00:00 12/07/22 22:00 12/08/22 04:00 Temperature 96.1 F L Pulse Rate 87 86 Pulse Rate [Right Monitor] 86 Respiratory Rate 14 Blood Pressure 154/78 H Pulse Oximetry 99 Oxygen Delivery 12/08/22 04:00 12/08/22 06:00 12/08/22 08:00 Temperature 97.9 F Pulse Rate 87 100 Pulse Rate [Right Monitor] 86 Respiratory Rate 14 Blood Pressure 155/91 H Pulse Oximetry 97 Oxygen Delivery 12/08/22 08:00 12/08/22 14:00 Temperature 97.7 F Pulse Rate 126 H Pulse Rate [Right Monitor] Respiratory Rate 20 Blood Pressure 132/90 Pulse Oximetry 93 Oxygen Delivery Room Air Intake/Output Intake/Output: Intake & Output 12/05/22 12/06/22 12/07/22 12/08/22 23:59 23:59 23:59 23:59 Intake Total 1999 1150 Balance 1999 1150 Meds/Results Medications: Active Medications Generic Name Dose Route Start Last Admin Trade Name Freq PRN Reason Stop Dose Admin Diphenhydramine HCl 25 mg 12/07/22 19:06 Diphenhydramine Hcl Inj 50 Mg/Ml Vial IV PUSH Q4H PRN Itching Famotidine 20 mg 12/07/22 21:00 12/08/22 10:40 Famotidine 20 Mg/2 Ml Vial IV PUSH 20 mg Q12HR GALLO Administration Folic Acid 1 mg 12/08/22 09:00 12/08/22 10:40 Folic Acid 1 Mg/0.2 Ml Inj IV PUSH 1 mg QAM GALLO Administration Hydromorphone HCl 1 mg 12/07/22 18:13 12/08/22 10:40 Hydromorphone Hcl Inj (*Crx) 1 Mg/Ml Syr IV PUSH 1 mg Q3H PRN Administration Pain Rated 7-10 Levofloxacin/Dextrose 750 mg in 150 mls @ 100 mls/hr 12/08/22 09:45 12/08/22 14:19 Levaquin 750 Mg/D5w 150 Ml IVPB Infused DAILY GALLO Infusion Metronidazole 500 mg in 100 mls @ 100 mls/hr 12/08/22 14:00 12/08/22 14:17 Flagyl 500 Mg/Iso Soln 100 Ml IVPB 100 mls/hr Q8HR GALLO Administration Lactated Ringer's 1,000 mls @ 150 mls/hr 12/08/22 11:41 12/08/22 12:44 Lr - Lactated Ringers Iv IV CONT Not Given .Q6H40M GALLO Lorazepam 1 mg 12/07/22 18:12 12/08/22 10:40 Lorazepam Inj (*Crx) 2 Mg/Ml Vial IV PUSH 1 mg Q6H PRN Administration Anxiety Nicotine 1 patch 12/08/22 09:00 12/08/22 10:36 Nicotine (*Pbkc) 21 Mg Patch TRANSDERM Not Given QAM GALLO Ondansetron HCl 4 mg 12/07/22 18:14 Ondansetron Inj 4 Mg/2 Ml Vial IV PUSH Q6H PRN Nausea And
[2022-12-08 16:05] LABS: Lactic Acid Reflex 3.6 mmol/L (0.7-2.0)
--- NOTE | 2022-12-08 18:03 | WPDCN ---
Assessment and Plan Assessment and plan (1) Acute alcoholic pancreatitis: Code(s): K85.20 - Alcohol induced acute pancreatitis without necrosis or infection Status: Acute Assessment and Plan: The patient has acute alcoholic induced pancreatitis. Supportive management with IV fluid hydration and IV antibiotics and IV pain management is indicated at this time. The CT scan suggests possible pancreatic necrosis and if he develops infected pancreatic necrosis then he should be transferred to a tertiary care facility where there is a hepatobiliary surgeon he can manage and operatively treat him with debridement of the necrotic and infected pancreatic tissue. Continue bowel rest for now. I discussed with him the possible development of pancreatic pseudocyst and chronic scarring of the pancreas resulting in diabetes and chronic abdominal pain. HPI Data of Consult Date/Time: 12/08/22 18:03 Requesting Physician: Gustavo Phillips MD Primary Care Provider: Franklin Manzano MD Consult Narrative Reason for consult: Acute pancreatitis Narrative: Christophe Weeks Jr. is a 52 year old male who was admitted to the hospital with a one-day history of severe epigastric abdominal pain. No nausea or vomiting. He admits to ingesting 4-5 drinks of hard liquor almost on a daily basis. He smokes a pack of cigarettes per day. He admitted to drinking several drinks of hard liquor prior to developing abdominal pain. He has never been admitted to the hospital for pancreatitis in the past. Workup in emergency room showed a lipase level of 40,000 [place] [address] [place] scan abdomen pelvis showed evidence of peripancreatic inflammation and fluid collections associated with some hypo enhancement of the parenchyma of the pancreas. This raised the possibility of pancreatic necrosis. The patient continues to need doses of IV pain medications and he has been started on IV antibiotics. He is being kept NPO for now. His lipase level has dropped down to 8000 today. Review of Systems Review of Systems: The remainder of the review of systems to include constitutional, HEENT, cardiovascular, respiratory, GI, , integumentary, musculoskeletal, endocrine, immunologic, hematologic, psychiatric, and neurologic are all negative except for which is mentioned above in the HPI. [facility] Past Medical History Medical History Alcoholism BMI 30.0-30.9,adult Kidney stone PTSD (post-traumatic stress disorder) Surgical History Surgical History H/O lithotripsy Status post tonsillectomy and adenoidectomy Family History Family History Father No problems noted. Mother No problems noted. Sibling Hypertension Asthma Social History Social History Social History: He has two children and is . The patient served in the [employer] and has PTSD now. The patient stated that he drinks every day according to the nurse. However the patient tells me that he might drink 10-12 alcoholic beverages when he drinks. He told me he does not drink every day. Code status full code Smoking packs per day: 1 Smoking cigarettes per day: 20.0 Years smoked: 33 Smoking pack-years: 33.00 Smoking status: Current every day smoker Tobacco type: cigarettes Second hand tobacco smoke exposure: No Alcohol intake: current Drinks per week: 15 Substance use: never Substance use type: does not use Lack of Transportation: YES Lack of Food: Sometimes True Current Housing: I Have Housing Concerned About Future Housing: No Difficulty Paying Gas/Electric Bills: No Difficulty Paying for Meds: No Currently Unemployed: YES Education: Associate Degree Difficulty w/ Childcare or Family Care: No Living
[2022-12-08 18:11] LABS: Glucose Point of Care 148 mg/dl (65-105)
[2022-12-09] VITALS (9 sets, daily range): BP systolic 140–146; BP diastolic 68–90; PULSE 104–119; RESP 14–20; TEMP 36.6–37.3; O2SAT 92–93
[2022-12-09] MEDS: LACTATED RINGERS 1,000 ML 150 ML IV CONT ×3 (03:19→21:05)
[2022-12-09] MEDS: HYDROmorphone HCL INJ (*CRX) 1 MG/ML SYR IV PUSH ×5 (03:20→21:03)
[2022-12-09] MEDS: metroNIDAZOLE 500 MG/ISO 100ML 500 MG/100 ML BAG 100 MG IVPB ×3 (05:20→21:07)
[2022-12-09 05:38] LABS: Glucose Point of Care 126 mg/dl (65-105)
[2022-12-09 06:32] LABS: Hematocrit 42.8 % (42.0-52.0); Hemoglobin 14.3 g/dL (14.0-18.0); Mean Corpuscular HGB Conc 33.4 g/dl (32-36); Mean Corpuscular Hemoglobin 35.7 pg (26-34); Mean Corpuscular Volume 106.7 fl (80-100); Mean Platelet Volume 10.8 fl (7.4-10.4); Platelet Count Result 111 k/mm3 (150-375); Red Blood Count 4.01 M/mm3 (4.6-6.20); Red Cell Distribution Width 14.3 % (11.5-14.5); White Blood Count 13.5 K/mm3 (4.5-10.0)
[2022-12-09 06:45] LABS: Alanine Aminotransferase 31 U/L (6-50); Albumin Level 3.1 g/dL (3.5-5.1); Alkaline Phosphatase 42 U/L (38-126); Anion Gap 3 mmol/L (8-16); Aspartate Amino Transferase 92 U/L (17-59); Blood Urea Nitrogen 23 mg/dL (9-20); Carbon Dioxide 21 mmol/L (22-30); Chloride 111 mmol/L (98-107); Estimated CRCL calculation 70 ml/min; Estimated Glomerular Filt Rate 58; Glucose 125 mg/dL (65-110); Potassium 4.3 mmol/L (3.4-5.0); Sodium 135 mmol/L (137-145)
[2022-12-09 06:53] LABS: Lipase 3846 U/L (23-300)
[2022-12-09 07:18] LABS: Band Neutrophils Percent 21 % (0-6); Lymphocytes Absolute Manual 0.54 K/mm3 (1.1-4.5); Monocytes Absolute Manual 0.13 K/mm3 (0.1-0.90); Monocytes Percent Manual 1 % (3-9); Neutrophils Absolute Manual 12.82 K/mm3 (1.3-6.7); Neutrophils Percent Manual 74 % (46-73); Total Cells Counted 100
[2022-12-09 07:19] LABS: Schistocytes None Seen (NORMAL)
[2022-12-09] MEDS: ENOXAPARIN 40 MG/0.4 ML SYRINGE SUB-Q (08:09)
[2022-12-09] MEDS: FOLIC ACID 1 MG/0.2 ML INJ IV PUSH (08:10)
[2022-12-09] MEDS: FAMOTIDINE 20 MG/2 ML VIAL IV PUSH ×2 (08:10→21:05)
[2022-12-09] MEDS: THIAMINE HCL 200 MG/2 ML VIAL 100 MG IV PUSH (08:12)
[2022-12-09 11:37] LABS: Glucose Point of Care 134 mg/dl (65-105)
--- NOTE | 2022-12-09 13:28 | PM.IMPN ---
Progress Note: A&P Assessment and Plan (1) Acute alcoholic pancreatitis: Code(s): K85.20 - Alcohol induced acute pancreatitis without necrosis or infection Status: Acute Plan Acute pancreatitis with possible infected necrosis and peripancreatic fluid collection Lipase 40k on admission and CT report reviewed NPO, Continue IVF, continue Levaquin and Flagyl PRN pain control GI and Gen surgery consulted lipase is 3000, [place] [address] continue to monitor Alcohol abuse continue CIWA protocol Counseled Tobacco abuse Counseled about cessation Hypokalemia replaced, serum mag monitor DVT prophylaxis Subjective Date/time seen: 12/09/22 13:28 52-year-old male patient has a history of alcohol abuse.? This morning he woke up with severe pain to use epigastric area.? The patient stated that he could sleep in got up around 2 or 3 this morning.? He started drinking today and that is when the pain started.? His white count is 17.7.? MCV is 105.1.? Potassium is 3.1 he is getting replacement at this time.? Lactic is 4.7 and repeat was 4.7.? Glucose 148.? Lipase greater than 40,000. Influenza A/B COVID RSV are all negative.? The patient was given Zofran, Pepcid IV, morphine, lactated Ringer's, and potassium chloride iv.? CT of the abdomen pelvis CTA was read as the following. Acute pancreatitis Pt still having abdominal pains, lipase is @3000 today, [place] [id number], continue to watch clinically Review of Systems Review of Systems: Abdominal pains 04/12 All systems reviewed & are unremarkable except as noted in HPI and below Exam Narrative: GENERAL: Appears to be extremely uncomfortable HEAD:? Normal with no signs of head trauma. EYES:? EOMI, conjunctiva normal ENT:? Hearing grossly intact LUNGS:? Nonlabored breathing. HEART:? [Regular rate and rhythm] ABD:? [Soft], [tender to palpation] to epigastric area and periumbilical region EXT: Normal range of motion SKIN:? [No rashes or lesions.] NEURO: [Alert and oriented x 3. No gross focal sensory or strength deficits.] Objective Data Vital Signs Vital Signs: Vital Signs - 24 hr 12/08/22 14:00 12/08/22 16:00 12/08/22 21:36 Temperature 36.5 C 36.6 C Pulse Rate 126 H 105 H 114 H Pulse Rate [Right Monitor] Respiratory Rate 20 18 Blood Pressure 132/90 134/90 Pulse Oximetry 93 93 Oxygen Delivery 12/08/22 20:00 12/08/22 20:00 12/09/22 00:00 Temperature Pulse Rate 102 H 109 H Pulse Rate [Right Monitor] 106 H Respiratory Rate Blood Pressure Pulse Oximetry Oxygen Delivery 12/09/22 00:00 12/09/22 04:00 12/09/22 06:00 Temperature 36.6 C Pulse Rate 110 H 119 H Pulse Rate [Right Monitor] 109 H Respiratory Rate 16 Blood Pressure 141/90 H Pulse Oximetry 93 Oxygen Delivery 12/09/22 08:00 12/09/22 08:00 Temperature Pulse Rate Pulse Rate [Right Monitor] 104 H Respiratory Rate Blood Pressure Pulse Oximetry Oxygen Delivery Room Air Intake/Output Intake/Output: Intake & Output 12/06/22 12/07/22 12/08/22 12/09/22 23:59 23:59 23:59 23:59 Intake Total 1999 3250 2900 Output Total Balance 1999 3250 2898 Meds/Results Medications: Active Medications Generic Name Dose Route Start Last Admin Trade Name Freq PRN Reason Stop Dose Admin Diphenhydramine HCl 25 mg 12/07/22 19:06 Diphenhydramine Hcl Inj 50 Mg/Ml Vial IV PUSH Q4H PRN Itching Enoxaparin Sodium 40 mg 12/09/22 09:00 12/09/22 08:09 Enoxaparin 40 Mg/0.4 Ml Syringe SUB-Q 40 mg DAILY GALLO Administration Famotidine 20 mg 12/07/22 21:00 12/09/22 08:10 Famotidine 20 Mg/2 Ml Vial IV PUSH 20 mg Q12HR GALLO Administration Folic Acid 1 mg 12/08/22 09:00 12/09/22 08:10 Folic Acid 1 Mg/0.2 Ml Inj IV PUSH 1 mg QAM GALLO Administration Hydromorphone HCl 1 mg 12/07/22 18:13 12/09/22 08:09 Hydromorphone Hcl Inj (*Crx) 1 Mg/Ml Syr IV PUSH 1 mg Q3H PRN Administration P
--- NOTE | 2022-12-09 13:39 | PM.PNGS ---
Progress Note: A&P Assessment and Plan (1) Acute alcoholic pancreatitis: Code(s): K85.20 - Alcohol induced acute pancreatitis without necrosis or infection Status: Acute Assessment and Plan: Acute alcoholic induced pancreatitis that is slowly improving. Lipase is down to 3,000 today and WBC is trending down. He is still having a fair amount of abdominal pain that is being controlled with the IV analgesics. Continue with IV fluid hydration, IV antibiotics, and pain management. Will start clear liquids today. Repeat labs tomorrow. If he develops infected pancreatic necrosis, then he will need to be transferred to a tertiary care facility where he could be managed by a hepatobiliary surgeon. Will continue to follow along. (2) Alcoholism: Code(s): F10.20 - Alcohol dependence, uncomplicated Status: Acute Assessment and Plan: CIWA score at 9 today and up to 12 last night. He has Ativan PRN that was given yesterday morning but no scheduled or other PRN medications for withdrawal. Discussed with Hospitalist who was going to potentially add Librium. Plan I have discussed the patient's case and plan of care with Dr. Taylor. Subjective Subjective Date/Time Seen: 12/09/22 13:39 Patient reports: pain is less, voiding w/o difficulty, flatus, no bowel movement and afebrile Interval history: Chart reviewed. Patient is still having generalized abdominal pain, but he feels it has improved slightly compared to yesterday. He denies any nausea or vomiting. He is receiving IV Dilaudid for pain, which he feels is helping to control his abdominal pain. Deep breathing seems to aggravate his pain. He is very uncomfortable when seen now, but has recently requested pain medication from the nurse. His lipase is down to 3,846 and WBC count down to 13.5 today. Exam Const: General: awake, ill appearing and uncomfortable Orientation/consciousness: patient oriented x3 Resp: Effort & Inspection: normal respiratory effort Auscultation: clear to auscultation bilaterally Cardio: Rate: tachycardic Rhythm: regular rhythm GI: Inspection: non-distended GI Palp: Yes Soft to palpation, Yes Tenderness to palpation present (GI) (diffuse tenderness but most focally in the epigastric area and LUQ), Yes Guarding due to palpation present (GI) (epigastrum), No Hernia present and No Rebound tenderness present Auscultation: normal bowel sounds Neuro: General: moves all extremities Extrem: General: normal to inspection, no calf tenderness and no edema Psych: Mental Status: mental status grossly normal Insight: Good insight present (Psych) Objective Data Vital Signs Vital Signs: Vital Signs - 24 hr 12/08/22 14:00 12/08/22 16:00 12/08/22 21:36 Temperature 97.7 F 97.9 F Pulse Rate 126 H 105 H 114 H Pulse Rate [Right Monitor] Respiratory Rate 20 18 Blood Pressure 132/90 134/90 Pulse Oximetry 93 93 Oxygen Delivery 12/08/22 20:00 12/08/22 20:00 12/09/22 00:00 Temperature Pulse Rate 102 H 109 H Pulse Rate [Right Monitor] 106 H Respiratory Rate Blood Pressure Pulse Oximetry Oxygen Delivery 12/09/22 00:00 12/09/22 04:00 12/09/22 06:00 Temperature 97.9 F Pulse Rate 110 H 119 H Pulse Rate [Right Monitor] 109 H Respiratory Rate 16 Blood Pressure 141/90 H Pulse Oximetry 93 Oxygen Delivery 12/09/22 08:00 12/09/22 08:00 12/09/22 13:30 Temperature 99.1 F Pulse Rate 115 H Pulse Rate [Right Monitor] 104 H Respiratory Rate 28 H Blood Pressure 140/81 Pulse Oximetry 93 Oxygen Delivery Room Air Intake/Output Intake/Output: Intake & Output 12/06/22 12/07/22 12/08/22 12/09/22 23:59 23:59 23:59 23:59 Intake Total 1999 3250 2900 Output Total Balance 1999 3250 2893 Meds/Results Medications: Active Medications Generic Name Dose Route Start Last Admin Trade Name Freq PRN Reason Stop Dose Admin Diphenhydramine HCl 25 mg 12/07/22 19:06 D
--- NOTE | 2022-12-09 16:45 | WPDGICN ---
Assessment and Plan Assessment and plan (1) Acute alcoholic pancreatitis: Code(s): K85.20 - Alcohol induced acute pancreatitis without necrosis or infection Status: Acute Assessment and Plan: medical treatment for now, ok to start liquid diet and monitor for signs of infection wa protocol, thiamine (2) Elevated liver enzymes: Code(s): R74.8 - Abnormal levels of other serum enzymes Status: Acute Assessment and Plan: continue to trend combination of alcohol and pancreatitis will get also hepatitis serology (3) Hypokalemia: Code(s): E87.6 - Hypokalemia Status: Acute Assessment and Plan: repleting (4) Leukocytosis: Code(s): D72.829 - Elevated white blood cell count, unspecified Status: Acute Assessment and Plan: from pancreatitis, monitor GI Consult Note Consult date/time: 12/09/22 16:45 Reason for consult: pancreatitis, alcohol abuse HPI: Christophe Weeks Jr. is a 52 year old male with history of alcohol abuse.?He had new onset of severe pain in epigastric area unable to sleep. Finally came to ER and found to have pancreatitis. His white count was 17.7.? MCV is 105.1.? Potassium 3.1, Lactic is 4.7, Glucose 148.? Lipase greater than 40,000. Influenza A/B, COVID RSV are all negative.? CT of the abdomen pelvis reviewed, Acute pancreatitis, likely interstitial edematous with acute peripancreatic fluid collection. Hypoenhancement of the head and body of the pancreas could be due to edema however early pancreatic necrosis is not excluded.?Still with pain but better, lipase trending down, bili 2, ast 92, alt 30. Denies previous episode of pancreatitis. Review of Systems Constitutional: Constitutional: Reports fatigue Eyes: Eyes: Denies blurry vision ENT: Reports Normal hearing present Cardiovascular: Cardiovascular: Denies chest pain Respiratory: Respiratory: Denies cough Gastrointestinal: Gastrointestinal: Reports abdominal pain Genitourinary: Genitourinary: Denies dysuria Musculoskeletal: Musculoskeletal: Reports back pain Neurologic: Denies Abnormal speech present Psychiatric: Psychiatric: Reports anxiety [facility] Past Medical History Medical History (Updated 12/09/22 @ 16:49 by Shane Weinstein MD) Alcoholism BMI 30.0-30.9,adult Elevated liver enzymes Kidney stone Leukocytosis PTSD (post-traumatic stress disorder) Surgical History Surgical History H/O lithotripsy Status post tonsillectomy and adenoidectomy Family History Family History Father No problems noted. Mother No problems noted. Sibling Hypertension Asthma Social History Social History Social History: He has two children and is . The patient served in the [employer] and has PTSD now. The patient stated that he drinks every day according to the nurse. However the patient tells me that he might drink 10-12 alcoholic beverages when he drinks. He told me he does not drink every day. Code status full code Smoking packs per day: 1 Smoking cigarettes per day: 20.0 Years smoked: 33 Smoking pack-years: 33.00 Smoking status: Current every day smoker Tobacco type: cigarettes Second hand tobacco smoke exposure: No Alcohol intake: current Drinks per week: 15 Substance use: never Substance use type: does not use Lack of Transportation: YES Lack of Food: Sometimes True Current Housing: I Have Housing Concerned About Future Housing: No Difficulty Paying Gas/Electric Bills: No Difficulty Paying for Meds: No Currently Unemployed: YES Education: Associate Degree Difficulty w/ Childcare or Family Care: No Living arrangements: with family Occupation/Education: retired Additional occupation/education comments: [employer] Gender identity (if rachell
[2022-12-09 17:37] LABS: Glucose Point of Care 140 mg/dl (65-105)
[2022-12-10] VITALS (9 sets, daily range): BP systolic 140–144; BP diastolic 71–74; PULSE 94–123; RESP 18–22; TEMP 36.9–37.3; O2SAT 90–91
[2022-12-10 00:11] LABS: Glucose Point of Care 137 mg/dl (65-105)
[2022-12-10] MEDS: HYDROmorphone HCL INJ (*CRX) 1 MG/ML SYR 0.5 MG IV PUSH (00:15)
[2022-12-10] MEDS: HYDROmorphone HCL INJ (*CRX) 1 MG/ML SYR IV PUSH ×6 (04:27→21:34)
[2022-12-10] MEDS: LACTATED RINGERS 1,000 ML 150 ML IV CONT ×2 (04:32→11:55)
[2022-12-10] MEDS: metroNIDAZOLE 500 MG/ISO 100ML 500 MG/100 ML BAG 100 MG IVPB ×3 (04:32→21:33)
[2022-12-10 06:33] LABS: Hematocrit 35.3 % (42.0-52.0); Immature Platelet Fraction Pct 5.3 % (0.9-11.2); Mean Corpuscular Hemoglobin 36.5 pg (26-34); Mean Corpuscular Volume 107.3 fl (80-100); Mean Platelet Volume 10.8 fl (7.4-10.4); Platelet Count Result 103 k/mm3 (150-375); Red Blood Count 3.29 M/mm3 (4.6-6.20); Red Cell Distribution Width 14.6 % (11.5-14.5); White Blood Count 8.3 K/mm3 (4.5-10.0)
[2022-12-10 06:52] LABS: Alanine Aminotransferase 28 U/L (6-50); Albumin Level 2.8 g/dL (3.5-5.1); Alkaline Phosphatase 38 U/L (38-126); Anion Gap 2 mmol/L (8-16); Aspartate Amino Transferase 74 U/L (17-59); Blood Urea Nitrogen 13 mg/dL (9-20); Calcium 6.4 mg/dL (8.4-10.2); Carbon Dioxide 26 mmol/L (22-30); Chloride 104 mmol/L (98-107); Estimated CRCL calculation 100 ml/min; Estimated Glomerular Filt Rate > 60; Glucose 114 mg/dL (65-110); Lipase 1139 U/L (23-300); Magnesium 1.4 mg/dL (1.6-2.3); Sodium 132 mmol/L (137-145)
[2022-12-10 07:34] LABS: Hepatitis B Surface Antigen Negative (Negative)
[2022-12-10 07:40] LABS: HAV RESULT Negative (Negative); Hepatitis B Core IgM Result Negative (Negative)
[2022-12-10 07:52] LABS: Hepatitis C Virus Antibody Negative (Negative)
[2022-12-10] MEDS: ENOXAPARIN 40 MG/0.4 ML SYRINGE SUB-Q (09:25)
[2022-12-10] MEDS: FAMOTIDINE 20 MG/2 ML VIAL IV PUSH (09:25)
[2022-12-10] MEDS: FOLIC ACID 1 MG/0.2 ML INJ IV PUSH (09:28)
[2022-12-10] MEDS: THIAMINE HCL 200 MG/2 ML VIAL 100 MG IV PUSH (09:29)
[2022-12-10 11:21] LABS: Glucose Point of Care 136 mg/dl (65-105)
--- NOTE | 2022-12-10 11:40 | PM.IMPN ---
Progress Note: A&P Assessment and Plan (1) Acute alcoholic pancreatitis: Code(s): K85.20 - Alcohol induced acute pancreatitis without necrosis or infection Status: Acute Plan Acute pancreatitis with possible infected necrosis and peripancreatic fluid collection Lipase 40k on admission and CT report reviewed NPO, Continue IVF, continue Levaquin and Flagyl PRN pain control GI and Gen surgery consulted Lipase is 1000, wcc is normal now Continue to monitor Pt started on clear diet but is having alot of abdominal pains today can hold on clear diet Add iv protonix Alcohol abuse continue [facility] protocol Librium ordered Counseled Tobacco abuse Counseled about cessation Hypokalemia replaced, serum mag and potassium monitor DVT prophylaxis Subjective Date/time seen: 12/10/22 11:40 52-year-old male patient has a history of alcohol abuse.? This morning he woke up with severe pain to use epigastric area.? The patient stated that he could sleep in got up around 2 or 3 this morning.? He started drinking today and that is when the pain started.? His white count is 17.7.? MCV is 105.1.? Potassium is 3.1 he is getting replacement at this time.? Lactic is 4.7 and repeat was 4.7.? Glucose 148.? Lipase greater than 40,000. Influenza A/B COVID RSV are all negative.? The patient was given Zofran, Pepcid IV, morphine, lactated Ringer's, and potassium chloride iv.? CT of the abdomen pelvis CTA was read as the following. Acute pancreatitislikely interstitial edematous with acute peripancreatic fluid collection. Hypoenhancement of the head and body of the pancreas could be due to edema however early pancreatic necrosis is not excluded. Pt still having abdominal pains, lipase is @1000 today, WCC is normal today Continue to watch in hospital, pt is slow to transition to oral diet Review of Systems Review of Systems: Severe abdominal pains All systems reviewed & are unremarkable except as noted in HPI and below Exam Narrative: GENERAL: Appears to be extremely uncomfortable in abdominal pains HEAD:? Normal with no signs of head trauma. EYES:? EOMI, conjunctiva normal ENT:? Hearing grossly intact LUNGS:? Nonlabored breathing. HEART:? [Regular rate and rhythm] ABD:? [Soft], [tender to palpation] to epigastric area and periumbilical region EXT: Normal range of motion SKIN:? [No rashes or lesions.] NEURO: [Alert and oriented x 3. No gross focal sensory or strength deficits.] Objective Data Vital Signs Vital Signs: Vital Signs - 24 hr 12/09/22 13:30 12/09/22 12:00 12/09/22 12:00 Temperature 37.3 C Pulse Rate 115 H 117 H Pulse Rate [Right Monitor] 115 H Respiratory Rate 20 Blood Pressure 140/81 140/81 Pulse Oximetry 93 12/09/22 16:00 12/09/22 16:00 12/09/22 22:00 Temperature 36.9 C Pulse Rate 115 H 113 H Pulse Rate [Right Monitor] 115 H Respiratory Rate 14 Blood Pressure 140/81 146/68 H Pulse Oximetry 92 12/09/22 20:00 12/09/22 20:00 12/10/22 00:00 Temperature Pulse Rate 110 H 94 Pulse Rate [Right Monitor] 110 H Respiratory Rate Blood Pressure Pulse Oximetry 12/10/22 00:00 12/10/22 04:00 12/10/22 06:00 Temperature 37.0 C Pulse Rate 112 H 120 H Pulse Rate [Right Monitor] 94 Respiratory Rate 18 Blood Pressure 144/71 H Pulse Oximetry 90 Intake/Output Intake/Output: Intake & Output 12/07/22 12/08/22 12/09/22 12/10/22 23:59 23:59 23:59 23:59 Intake Total 1999 3250 5470 1448 Output Total Balance 1999 3250 9888 1448 Meds/Results Medications: Active Medications Generic Name Dose Route Start Last Admin Trade Name Freq PRN Reason Stop Dose Admin Chlordiazepoxide HCl 25 mg 12/09/22 14:08 Chlordiazepoxide (*Crx) 25 Mg Capsule PO Q6H PRN Withdrawal Diphenhydramine HCl 25 mg 12/07/22 19:06 Diphenhydramine Hcl Inj 50 Mg/Ml Vial IV PUSH Q4H PRN Itching Enoxaparin Sodium 40 mg 12/09/22
--- NOTE | 2022-12-10 12:09 | WPDGIPROGNO ---
Progress Note: A&P Assessment and Plan (1) Acute alcoholic pancreatitis: Code(s): K85.20 - Alcohol induced acute pancreatitis without necrosis or infection Status: Acute Assessment and Plan: tolerating liquid diet wbc normal today (2) Leukocytosis: Code(s): D72.829 - Elevated white blood cell count, unspecified Status: Acute Assessment and Plan: normal today probably from pancreatitis (3) Elevated liver enzymes: Code(s): R74.8 - Abnormal levels of other serum enzymes Status: Acute Assessment and Plan: from pancreatitis hepatitis panel negative (4) Upper abdominal pain: Code(s): R10.10 - Upper abdominal pain, unspecified Status: Acute Subjective Date/time seen: 12/10/22 12:09 Interval history: similar pain but tolerating liquid diet Review of Systems Review of Systems: All systems reviewed & are unremarkable except as noted in HPI and below Exam Const: General: awake Orientation/consciousness: patient oriented x3 Other: more comfortable today HENMT: Face/Nose/Sinus: Normal nares present Eyes: General: appearance normal, both eyes and all related structures Neck: Neck: supple Resp: Effort & Inspection: normal respiratory effort Auscultation: clear to auscultation bilaterally Cardio: Rate: tachycardic Rhythm: regular rhythm GI: Inspection: non-distended GI Palp: Yes Soft to palpation, Yes Tenderness to palpation present (GI) (diffuse tenderness) and No Rebound tenderness present Auscultation: normal bowel sounds Skin: General skin exam: normal color Neuro: General: moves all extremities Motor exam (neuro): 5/5 motor strength present throughout Extrem: General: normal to inspection, no calf tenderness and no edema Psych: Mental Status: mental status grossly normal Insight: Good insight present (Psych) Objective Data Vital Signs Vital Signs: Vital Signs - 24 hr 12/09/22 13:30 12/09/22 16:00 12/09/22 16:00 Temperature 99.1 F Pulse Rate 115 H 115 H Pulse Rate [Right Monitor] 115 H Respiratory Rate 20 Blood Pressure 140/81 140/81 Pulse Oximetry 93 12/09/22 22:00 12/09/22 20:00 12/09/22 20:00 Temperature 98.4 F Pulse Rate 113 H 110 H Pulse Rate [Right Monitor] 110 H Respiratory Rate 14 Blood Pressure 146/68 H Pulse Oximetry 92 12/10/22 00:00 12/10/22 00:00 12/10/22 04:00 Temperature Pulse Rate 94 112 H Pulse Rate [Right Monitor] 94 Respiratory Rate Blood Pressure Pulse Oximetry 12/10/22 06:00 Temperature 98.6 F Pulse Rate 120 H Pulse Rate [Right Monitor] Respiratory Rate 18 Blood Pressure 144/71 H Pulse Oximetry 90 Intake/Output Intake/Output: Intake & Output 12/07/22 12/08/22 12/09/22 12/10/22 23:59 23:59 23:59 23:59 Intake Total 1999 3250 2126 9288 Output Total Balance 1999 3253 3160 0186 Meds/Results Medications: Active Medications Generic Name Dose Route Start Last Admin Trade Name Freq PRN Reason Stop Dose Admin Chlordiazepoxide HCl 25 mg 12/09/22 14:08 Chlordiazepoxide (*Crx) 25 Mg Capsule PO Q6H PRN Withdrawal Diphenhydramine HCl 25 mg 12/07/22 19:06 Diphenhydramine Hcl Inj 50 Mg/Ml Vial IV PUSH Q4H PRN Itching Enoxaparin Sodium 40 mg 12/09/22 09:00 12/10/22 09:25 Enoxaparin 40 Mg/0.4 Ml Syringe SUB-Q 40 mg DAILY GALLO Administration Folic Acid 1 mg 12/08/22 09:00 12/10/22 09:28 Folic Acid 1 Mg/0.2 Ml Inj IV PUSH 1 mg QAM GALLO Administration Hydromorphone HCl 0.5 mg 12/09/22 14:00 12/10/22 00:15 Hydromorphone Hcl Inj (*Crx) 1 Mg/Ml Syr IV PUSH 0.5 mg Q2H PRN Administration Pain Rated 4-6 Hydromorphone HCl 1 mg 12/09/22 14:01 12/10/22 11:54 Hydromorphone Hcl Inj (*Crx) 1 Mg/Ml Syr IV PUSH 1 mg Q2H PRN Administration Pain Rated 7-10 Levofloxacin/Dextrose 750 mg in 150 mls @ 100 mls/hr 12/08/22 09:45 12/10/22 09:29 Levaquin 750 Mg
--- NOTE | 2022-12-10 12:56 | PM.PNGS ---
Progress Note: A&P Assessment and Plan (1) Acute alcoholic pancreatitis: Code(s): K85.20 - Alcohol induced acute pancreatitis without necrosis or infection Status: Acute Assessment and Plan: Lipase trending down to 1,000 today and WBC count normalized. He is still having abdominal pain but is tolerating a liquid diet. Overall, he is clinically improving with medical management. Will advance him to a low fat diet and decrease his IV fluids. Would expect his abdominal pain to start improving over the next few days. No indication for surgical intervention at this time. We will sign off and please call with any surgical concerns. Plan I have discussed the patient's case and plan of care with Dr. Taylor. Subjective Subjective Date/Time Seen: 12/10/22 12:56 Patient reports: no new complaints, still having pain, tolerating liquids well, voiding w/o difficulty, flatus, no bowel movement and afebrile Interval history: Patient reportedly feeling about the same today. Still having abdominal pain and receiving IV Dilaudid to control his pain. No nausea or vomiting. Has primarily only drank juice and water from the liquid trays and tolerating this well. Review of Systems Review of Systems: ROS unchanged Exam Const: General: comfortable and awake Orientation/consciousness: patient oriented x3 GI: Inspection: non-distended GI Palp: Yes Soft to palpation, Yes Tenderness to palpation present (GI) (still with diffuse tenderness most focally in the epigastrum and LUQ), No Guarding due to palpation present (GI) and No Rebound tenderness present Auscultation: normal bowel sounds Extrem: General: no edema Psych: Mental Status: mental status grossly normal Insight: Good insight present (Psych) Objective Data Vital Signs Vital Signs: Vital Signs - 24 hr 12/09/22 13:30 12/09/22 16:00 12/09/22 16:00 Temperature 99.1 F Pulse Rate 115 H 115 H Pulse Rate [Right Monitor] 115 H Respiratory Rate 20 Blood Pressure 140/81 140/81 Pulse Oximetry 93 12/09/22 22:00 12/09/22 20:00 12/09/22 20:00 Temperature 98.4 F Pulse Rate 113 H 110 H Pulse Rate [Right Monitor] 110 H Respiratory Rate 14 Blood Pressure 146/68 H Pulse Oximetry 92 12/10/22 00:00 12/10/22 00:00 12/10/22 04:00 Temperature Pulse Rate 94 112 H Pulse Rate [Right Monitor] 94 Respiratory Rate Blood Pressure Pulse Oximetry 12/10/22 06:00 Temperature 98.6 F Pulse Rate 120 H Pulse Rate [Right Monitor] Respiratory Rate 18 Blood Pressure 144/71 H Pulse Oximetry 90 Intake/Output Intake/Output: Intake & Output 12/07/22 12/08/22 12/09/22 12/10/22 23:59 23:59 23:59 23:59 Intake Total 1999 4323 8170 7626 Output Total Balance 1999 3252 0048 2448 Meds/Results Medications: Active Medications Generic Name Dose Route Start Last Admin Trade Name Freq PRN Reason Stop Dose Admin Chlordiazepoxide HCl 25 mg 12/09/22 14:08 Chlordiazepoxide (*Crx) 25 Mg Capsule PO Q6H PRN Withdrawal Diphenhydramine HCl 25 mg 12/07/22 19:06 Diphenhydramine Hcl Inj 50 Mg/Ml Vial IV PUSH Q4H PRN Itching Enoxaparin Sodium 40 mg 12/09/22 09:00 12/10/22 09:25 Enoxaparin 40 Mg/0.4 Ml Syringe SUB-Q 40 mg DAILY GALLO Administration Folic Acid 1 mg 12/08/22 09:00 12/10/22 09:28 Folic Acid 1 Mg/0.2 Ml Inj IV PUSH 1 mg QAM GALLO Administration Hydromorphone HCl 0.5 mg 12/09/22 14:00 12/10/22 00:15 Hydromorphone Hcl Inj (*Crx) 1 Mg/Ml Syr IV PUSH 0.5 mg Q2H PRN Administration Pain Rated 4-6 Hydromorphone HCl 1 mg 12/09/22 14:01 12/10/22 11:54 Hydromorphone Hcl Inj (*Crx) 1 Mg/Ml Syr IV PUSH 1 mg Q2H PRN Administration Pain Rated 7-10 Levofloxacin/Dextrose 750 mg in 150 mls @ 100 mls/hr 12/08/22 09:45 12/10/22 09:29 Levaquin 750 Mg/D5w 150 Ml IVPB 100 mls/hr DAILY GALLO Administration Metronidazole 500 mg in 100 mls @ 100 mls/hr 12/08
[2022-12-10 16:16] LABS: Glucose Point of Care 126 mg/dl (65-105)
[2022-12-10] MEDS: POTASSIUM CHLORIDE 20 MEQ PACKET (FOR LIQUID) 40 MEQ PO (17:20)
[2022-12-10 20:11] LABS: Glucose Point of Care 132 mg/dl (65-105)
[2022-12-11] VITALS (10 sets, daily range): BP systolic 125–132; BP diastolic 62–74; PULSE 104–116; RESP 14–16; TEMP 36.6–37.2; O2SAT 91–95
[2022-12-11] MEDS: HYDROmorphone HCL INJ (*CRX) 1 MG/ML SYR 0.5 MG IV PUSH ×3 (00:08→06:11)
[2022-12-11] MEDS: LACTATED RINGERS 1,000 ML 100 ML IV CONT ×2 (03:48→16:14)
[2022-12-11] MEDS: metroNIDAZOLE 500 MG/ISO 100ML 500 MG/100 ML BAG 100 MG IVPB (05:39)
[2022-12-11 06:09] LABS: Hematocrit 34.2 % (42.0-52.0); Hemoglobin 11.7 g/dL (14.0-18.0); Mean Corpuscular HGB Conc 34.2 g/dl (32-36); Mean Corpuscular Hemoglobin 36.3 pg (26-34); Mean Corpuscular Volume 106.2 fl (80-100); Mean Platelet Volume 9.9 fl (7.4-10.4); Platelet Count Result 133 k/mm3 (150-375); Red Blood Count 3.22 M/mm3 (4.6-6.20); Red Cell Distribution Width 14.7 % (11.5-14.5); White Blood Count 8.7 K/mm3 (4.5-10.0)
[2022-12-11 06:34] LABS: Anion Gap 2 mmol/L (8-16); Blood Urea Nitrogen 9 mg/dL (9-20); Calcium 6.4 mg/dL (8.4-10.2); Carbon Dioxide 26 mmol/L (22-30); Chloride 107 mmol/L (98-107); Estimated CRCL calculation 126 ml/min; Estimated Glomerular Filt Rate > 60; Glucose 106 mg/dL (65-110); Lipase 341 U/L (23-300); Potassium 3.5 mmol/L (3.4-5.0); Sodium 135 mmol/L (137-145)
[2022-12-11 08:05] LABS: Glucose Point of Care 102 mg/dl (65-105)
[2022-12-11] MEDS: HYDROmorphone HCL INJ (*CRX) 1 MG/ML SYR IV PUSH (08:48)
[2022-12-11] MEDS: PANTOPRAZOLE SODIUM IV 40 MG VIAL IV PUSH (08:49)
[2022-12-11] MEDS: ENOXAPARIN 40 MG/0.4 ML SYRINGE SUB-Q (08:49)
[2022-12-11] MEDS: FOLIC ACID 1 MG/0.2 ML INJ IV PUSH (08:49)
[2022-12-11] MEDS: THIAMINE HCL 200 MG/2 ML VIAL 100 MG IV PUSH (08:49)
[2022-12-11] MEDS: POTASSIUM CHLORIDE 20 MEQ PACKET (FOR LIQUID) 40 MEQ PO ×2 (08:50→16:14)
[2022-12-11 11:21] LABS: Glucose Point of Care 104 mg/dl (65-105)
--- NOTE | 2022-12-11 12:10 | PM.IMPN ---
Progress Note: A&P Assessment and Plan (1) Acute alcoholic pancreatitis: Code(s): K85.20 - Alcohol induced acute pancreatitis without necrosis or infection Status: Acute Plan Acute pancreatitis with possible infected necrosis and peripancreatic fluid collection Lipase improved Low-fat diet GI and Gen surgery consulted Alcohol abuse continue [facility] protocol Librium ordered Counseled Tobacco abuse Counseled about cessation Hypokalemia replaced, serum mag and potassium monitor DVT prophylaxis Subjective Date/time seen: 12/11/22 12:10 Pain improved Exam Narrative: GENERAL: Appears to be extremely uncomfortable in abdominal pains HEAD:? Normal with no signs of head trauma. EYES:? EOMI, conjunctiva normal ENT:? Hearing grossly intact LUNGS:? Nonlabored breathing. HEART:? [Regular rate and rhythm] ABD:? [Soft], [tender to palpation] to epigastric area and periumbilical region EXT: Normal range of motion SKIN:? [No rashes or lesions.] NEURO: [Alert and oriented x 3. No gross focal sensory or strength deficits.] Objective Data Vital Signs Vital Signs: Vital Signs - 24 hr 12/10/22 14:00 12/10/22 16:00 12/10/22 16:00 Temperature 98.5 F Pulse Rate 123 H 123 H Pulse Rate [Right Monitor] 118 H Respiratory Rate 22 H Blood Pressure 140/74 140/74 Pulse Oximetry 91 Oxygen Delivery 12/10/22 20:00 12/10/22 22:00 12/11/22 00:00 Temperature 99.1 F Pulse Rate 106 H 115 H 111 H Pulse Rate [Right Monitor] Respiratory Rate 20 Blood Pressure 142/72 H Pulse Oximetry 91 Oxygen Delivery 12/11/22 04:00 12/11/22 05:30 12/11/22 10:50 Temperature 98.9 F Pulse Rate 111 H 116 H Pulse Rate [Right Monitor] Respiratory Rate 16 Blood Pressure 125/65 Pulse Oximetry 93 92 Oxygen Delivery Room Air 12/11/22 08:00 12/11/22 08:00 12/11/22 08:00 Temperature Pulse Rate 116 H 116 H Pulse Rate [Right Monitor] Respiratory Rate 16 Blood Pressure 125/65 Pulse Oximetry 92 Oxygen Delivery Room Air Intake/Output Intake/Output: Intake & Output 12/08/22 12/09/22 12/10/22 12/11/22 23:59 23:59 23:59 23:59 Intake Total 3250 5470 4252 778 Output Total 2 4 Balance 3250 5468 4252 774 Meds/Results Medications: Active Medications Generic Name Dose Route Start Last Admin Trade Name Freq PRN Reason Stop Dose Admin Hydrocodone Bitart/Acetaminophen 1 tab 12/11/22 10:41 Hydrocodone/Acetaminophen (*Crx) 5-325 Mg Tablet PO Q4H PRN Pain Rated 4-6 Chlordiazepoxide HCl 25 mg 12/09/22 14:08 Chlordiazepoxide (*Crx) 25 Mg Capsule PO Q6H PRN Withdrawal Diphenhydramine HCl 25 mg 12/07/22 19:06 Diphenhydramine Hcl Inj 50 Mg/Ml Vial IV PUSH Q4H PRN Itching Enoxaparin Sodium 40 mg 12/09/22 09:00 12/11/22 08:49 Enoxaparin 40 Mg/0.4 Ml Syringe SUB-Q 40 mg DAILY GALLO Administration Folic Acid 1 mg 12/12/22 09:00 Folic Acid 1 Mg Tablet PO DAILY GALLO Levofloxacin/Dextrose 750 mg in 150 mls @ 100 mls/hr 12/08/22 09:45 12/11/22 08:49 Levaquin 750 Mg/D5w 150 Ml IVPB 100 mls/hr DAILY GALLO Administration Metronidazole 500 mg in 100 mls @ 100 mls/hr 12/08/22 14:00 12/11/22 05:39 Flagyl 500 Mg/Iso Soln 100 Ml IVPB 100 mls/hr Q8HR GALLO Administration Lactated Ringer's 1,000 mls @ 100 mls/hr 12/08/22 11:41 12/11/22 03:48 Lr - Lactated Ringers Iv IV CONT 100 mls/hr .Q10H GALLO Administration Lorazepam 1 mg 12/07/22 18:12 12/08/22 10:40 Lorazepam Inj (*Crx) 2 Mg/Ml Vial IV PUSH 1 mg Q6H PRN Administration Anxiety Nicotine 1 patch 12/08/22 09:00 12/11/22 08:39 Nicotine (*Pbkc) 21 Mg Patch TRANSDERM Not Given QAM GALLO Ondansetron HCl 4 mg 12/07/22 18:14 Ondansetron Inj 4 Mg/2 Ml Vial IV PUSH Q6H PRN Nausea And Vomiting Pantoprazole Sodium 40 mg 12/12/22 09:00 Pantoprazole 40 Mg Tablet PO QAM GALLO
[2022-12-11] MEDS: HYDROcodone/acetaminophen (*CRX) 5-325 MG TABLET 1 TAB PO ×3 (12:17→23:23)
--- NOTE | 2022-12-11 15:09 | WPDGIPROGNO ---
Progress Note: A&P Assessment and Plan (1) Acute alcoholic pancreatitis: Code(s): K85.20 - Alcohol induced acute pancreatitis without necrosis or infection Status: Acute Assessment and Plan: tolerating more diet surgery on board slowly improving (2) Leukocytosis: Code(s): D72.829 - Elevated white blood cell count, unspecified Status: Acute Assessment and Plan: resolved, overall better probably from pancreatitis (3) Elevated liver enzymes: Code(s): R74.8 - Abnormal levels of other serum enzymes Status: Acute Assessment and Plan: from pancreatitis hepatitis panel negative (4) Upper abdominal pain: Code(s): R10.10 - Upper abdominal pain, unspecified Status: Acute Subjective Date/time seen: 12/11/22 15:09 Interval history: overall better, he has been trying to eat more, still with some abdominal patient but he is more comfortable Review of Systems Review of Systems: All systems reviewed & are unremarkable except as noted in HPI and below Exam Const: General: awake Orientation/consciousness: patient oriented x3 Other: more comfortable today HENMT: Face/Nose/Sinus: Normal nares present Eyes: General: appearance normal, both eyes and all related structures Neck: Neck: supple Resp: Effort & Inspection: normal respiratory effort Auscultation: clear to auscultation bilaterally Cardio: Rhythm: regular rhythm GI: Inspection: non-distended GI Palp: Yes Soft to palpation, Yes Tenderness to palpation present (GI) (less tender) and No Rebound tenderness present Auscultation: normal bowel sounds Skin: General skin exam: normal color Neuro: General: moves all extremities Motor exam (neuro): 5/5 motor strength present throughout Extrem: General: normal to inspection, no calf tenderness and no edema Psych: Mental Status: mental status grossly normal Insight: Good insight present (Psych) Objective Data Vital Signs Vital Signs: Vital Signs - 24 hr 12/10/22 16:00 12/10/22 16:00 12/10/22 20:00 Temperature Pulse Rate 123 H 106 H Pulse Rate [Right Monitor] 118 H Respiratory Rate Blood Pressure 140/74 Pulse Oximetry Oxygen Delivery 12/10/22 22:00 12/11/22 00:00 12/11/22 04:00 Temperature 99.1 F Pulse Rate 115 H 111 H 111 H Pulse Rate [Right Monitor] Respiratory Rate 20 Blood Pressure 142/72 H Pulse Oximetry 91 Oxygen Delivery 12/11/22 05:30 12/11/22 10:50 12/11/22 08:00 Temperature 98.9 F Pulse Rate 116 H 116 H Pulse Rate [Right Monitor] Respiratory Rate 16 Blood Pressure 125/65 Pulse Oximetry 93 92 Oxygen Delivery Room Air 12/11/22 08:00 12/11/22 08:00 12/11/22 14:00 Temperature 98 F Pulse Rate 116 H 110 H Pulse Rate [Right Monitor] Respiratory Rate 16 16 Blood Pressure 125/65 132/74 Pulse Oximetry 92 91 Oxygen Delivery Room Air Intake/Output Intake/Output: Intake & Output 12/08/22 12/09/22 12/10/22 12/11/22 23:59 23:59 23:59 23:59 Intake Total 3250 5470 4252 1138 Output Total 2 4 Balance 3250 5468 4252 1134 Meds/Results Medications: Active Medications Generic Name Dose Route Start Last Admin Trade Name Freq PRN Reason Stop Dose Admin Hydrocodone Bitart/Acetaminophen 1 tab 12/11/22 10:41 12/11/22 12:17 Hydrocodone/Acetaminophen (*Crx) 5-325 Mg Tablet PO 1 tab Q4H PRN Administration Pain Rated 4-6 Chlordiazepoxide HCl 25 mg 12/09/22 14:08 Chlordiazepoxide (*Crx) 25 Mg Capsule PO Q6H PRN Withdrawal Diphenhydramine HCl 25 mg 12/07/22 19:06 Diphenhydramine Hcl Inj 50 Mg/Ml Vial IV PUSH Q4H PRN Itching Enoxaparin Sodium 40 mg 12/09/22 09:00 12/11/22 08:49 Enoxaparin 40 Mg/0.4 Ml Syringe SUB-Q 40 mg DAILY GALLO Administration Folic Acid 1 mg 12/12/22 09:00 Folic Acid 1 Mg Tablet PO DAILY GALLO Lactated Ringer's 1,000 mls @ 100 mls/hr 12/08/22 11:41 12/11/22 03
[2022-12-11 16:22] LABS: Glucose Point of Care 112 mg/dl (65-105)
[2022-12-11 22:10] LABS: Glucose Point of Care 130 mg/dl (65-105)
[2022-12-12] VITALS (9 sets, daily range): BP systolic 117–149; BP diastolic 72–76; PULSE 93–132; RESP 14–18; TEMP 36.8–37; O2SAT 93–95
[2022-12-12] MEDS: HYDROcodone/acetaminophen (*CRX) 5-325 MG TABLET 1 TAB PO ×4 (03:39→22:08)
[2022-12-12 07:41] LABS: Glucose Point of Care 104 mg/dl (65-105)
[2022-12-12] MEDS: FOLIC ACID 1 MG TABLET PO (08:30)
[2022-12-12] MEDS: PANTOPRAZOLE 40 MG TABLET PO (08:30)
[2022-12-12] MEDS: POTASSIUM CHLORIDE 20 MEQ PACKET (FOR LIQUID) 40 MEQ PO ×2 (08:30→18:01)
[2022-12-12] MEDS: THIAMINE HCL 100 MG TABLET PO (08:30)
[2022-12-12] MEDS: ENOXAPARIN 40 MG/0.4 ML SYRINGE SUB-Q (08:31)
--- NOTE | 2022-12-12 09:00 | WPDGIPROGNO ---
Progress Note: A&P Assessment and Plan (1) Acute alcoholic pancreatitis: Code(s): K85.20 - Alcohol induced acute pancreatitis without necrosis or infection Status: Acute Assessment and Plan: tolerating more diet but still with pain CT abdomen was just completed, awaiting report surgery on board (2) Leukocytosis: Code(s): D72.829 - Elevated white blood cell count, unspecified Status: Acute Assessment and Plan: resolved probably from pancreatitis (3) Elevated liver enzymes: Code(s): R74.8 - Abnormal levels of other serum enzymes Status: Acute Assessment and Plan: from pancreatitis hepatitis panel negative (4) Upper abdominal pain: Code(s): R10.10 - Upper abdominal pain, unspecified Status: Acute Assessment and Plan: persistent, pending CT scan Subjective Date/time seen: 12/12/22 09:00 Interval history: he has been eating, similar abdominal pain Review of Systems Review of Systems: All systems reviewed & are unremarkable except as noted in HPI and below Exam Const: General: awake Orientation/consciousness: patient oriented x3 HENMT: Face/Nose/Sinus: Normal nares present Eyes: General: appearance normal, both eyes and all related structures Neck: Neck: supple Resp: Effort & Inspection: normal respiratory effort Auscultation: clear to auscultation bilaterally Cardio: Rhythm: regular rhythm GI: Inspection: non-distended GI Palp: Yes Soft to palpation and Yes Tenderness to palpation present (GI) (less tender) Auscultation: normal bowel sounds Skin: General skin exam: normal color Neuro: General: moves all extremities Motor exam (neuro): 5/5 motor strength present throughout Extrem: General: normal to inspection, no calf tenderness and no edema Psych: Mental Status: mental status grossly normal Insight: Good insight present (Psych) Objective Data Vital Signs Vital Signs: Vital Signs - 24 hr 12/11/22 14:00 12/11/22 12:00 12/11/22 16:00 Temperature 98 F Pulse Rate 110 H 110 H 110 H Pulse Rate [Right Monitor] Respiratory Rate 16 Blood Pressure 132/74 Pulse Oximetry 91 Oxygen Delivery 12/11/22 12:00 12/11/22 16:00 12/11/22 20:00 Temperature Pulse Rate Pulse Rate [Right Monitor] 110 H 110 H 105 H Respiratory Rate Blood Pressure 132/74 Pulse Oximetry Oxygen Delivery 12/12/22 00:00 12/11/22 20:00 12/12/22 00:00 Temperature Pulse Rate 104 H 106 H Pulse Rate [Right Monitor] 106 H Respiratory Rate Blood Pressure Pulse Oximetry Oxygen Delivery 12/11/22 22:00 12/12/22 04:00 12/12/22 04:00 Temperature 98.8 F Pulse Rate 105 H 105 H Pulse Rate [Right Monitor] 105 H Respiratory Rate 14 Blood Pressure 128/62 Pulse Oximetry 95 Oxygen Delivery 12/12/22 08:00 12/12/22 04:30 Temperature 98.2 F Pulse Rate 108 H Pulse Rate [Right Monitor] Respiratory Rate 18 Blood Pressure 149/73 H Pulse Oximetry 95 Oxygen Delivery Room Air Intake/Output Intake/Output: Intake & Output 12/09/22 12/10/22 12/11/22 12/12/22 23:59 23:59 23:59 23:59 Intake Total 5470 4252 3098 1350 Output Total 2 304 475 Balance 5468 4252 2794 875 Meds/Results Medications: Active Medications Generic Name Dose Route Start Last Admin Trade Name Freq PRN Reason Stop Dose Admin Hydrocodone Bitart/Acetaminophen 1 tab 12/11/22 10:41 12/12/22 10:59 Hydrocodone/Acetaminophen (*Crx) 5-325 Mg Tablet PO 1 tab Q4H PRN Administration Pain Rated 4-6 Chlordiazepoxide HCl 25 mg 12/09/22 14:08 Chlordiazepoxide (*Crx) 25 Mg Capsule PO Q6H PRN Withdrawal Diphenhydramine HCl 25 mg 12/07/22 19:06 Diphenhydramine Hcl Inj 50 Mg/Ml Vial IV PUSH Q4H PRN Itching Enoxaparin Sodium 40 mg 12/09/22 09:00 12/12/22 08:31 Enoxaparin 40 Mg/0.4 Ml Syringe SUB-Q 40 mg DAILY GALLO Administration Folic Acid 1 mg
[2022-12-12 11:36] LABS: Glucose Point of Care 111 mg/dl (65-105)
--- NOTE | 2022-12-12 11:46 | PM.IMPN ---
Progress Note: A&P Assessment and Plan (1) Acute alcoholic pancreatitis: Code(s): K85.20 - Alcohol induced acute pancreatitis without necrosis or infection Status: Acute Plan Acute pancreatitis with possible infected necrosis and peripancreatic fluid collection Lipase improved Low-fat diet GI and Gen surgery consulted Repeat Ct noted, await further recs by GI Alcohol abuse continue [facility] protocol Librium ordered Counseled Tobacco abuse Counseled about cessation Hypokalemia replaced, serum mag and potassium monitor DVT prophylaxis Subjective Date/time seen: 12/12/22 11:46 Pain is improved, not eating much. CT findings noted. Exam Narrative: GENERAL: Appears to be extremely uncomfortable in abdominal pains HEAD:? Normal with no signs of head trauma. EYES:? EOMI, conjunctiva normal ENT:? Hearing grossly intact LUNGS:? Nonlabored breathing. HEART:? [Regular rate and rhythm] ABD:? [Soft], [tender to palpation] to epigastric area and periumbilical region EXT: Normal range of motion SKIN:? [No rashes or lesions.] NEURO: [Alert and oriented x 3. No gross focal sensory or strength deficits.] Objective Data Vital Signs Vital Signs: Vital Signs - 24 hr 12/11/22 14:00 12/11/22 12:00 12/11/22 16:00 Temperature 98 F Pulse Rate 110 H 110 H 110 H Pulse Rate [Right Monitor] Respiratory Rate 16 Blood Pressure 132/74 Pulse Oximetry 91 Oxygen Delivery 12/11/22 12:00 12/11/22 16:00 12/11/22 20:00 Temperature Pulse Rate Pulse Rate [Right Monitor] 110 H 110 H 105 H Respiratory Rate Blood Pressure 132/74 Pulse Oximetry Oxygen Delivery 12/12/22 00:00 12/11/22 20:00 12/12/22 00:00 Temperature Pulse Rate 104 H 106 H Pulse Rate [Right Monitor] 106 H Respiratory Rate Blood Pressure Pulse Oximetry Oxygen Delivery 12/11/22 22:00 12/12/22 04:00 12/12/22 04:00 Temperature 98.8 F Pulse Rate 105 H 105 H Pulse Rate [Right Monitor] 105 H Respiratory Rate 14 Blood Pressure 128/62 Pulse Oximetry 95 Oxygen Delivery 12/12/22 08:00 12/12/22 04:30 Temperature 98.2 F Pulse Rate 108 H Pulse Rate [Right Monitor] Respiratory Rate 18 Blood Pressure 149/73 H Pulse Oximetry 95 Oxygen Delivery Room Air Intake/Output Intake/Output: Intake & Output 12/09/22 12/10/22 12/11/22 12/12/22 23:59 23:59 23:59 23:59 Intake Total 5470 4252 3098 1350 Output Total 2 304 475 Balance 546 4258 9885 263 Meds/Results Medications: Active Medications Generic Name Dose Route Start Last Admin Trade Name Freq PRN Reason Stop Dose Admin Hydrocodone Bitart/Acetaminophen 1 tab 12/11/22 10:41 12/12/22 10:59 Hydrocodone/Acetaminophen (*Crx) 5-325 Mg Tablet PO 1 tab Q4H PRN Administration Pain Rated 4-6 Chlordiazepoxide HCl 25 mg 12/09/22 14:08 Chlordiazepoxide (*Crx) 25 Mg Capsule PO Q6H PRN Withdrawal Diphenhydramine HCl 25 mg 12/07/22 19:06 Diphenhydramine Hcl Inj 50 Mg/Ml Vial IV PUSH Q4H PRN Itching Enoxaparin Sodium 40 mg 12/09/22 09:00 12/12/22 08:31 Enoxaparin 40 Mg/0.4 Ml Syringe SUB-Q 40 mg DAILY GALLO Administration Folic Acid 1 mg 12/12/22 09:00 12/12/22 08:30 Folic Acid 1 Mg Tablet PO 1 mg DAILY GALLO Administration Lactated Ringer's 1,000 mls @ 100 mls/hr 12/08/22 11:41 12/12/22 06:14 Lr - Lactated Ringers Iv IV CONT Not Given .Q10H GALLO Lorazepam 1 mg 12/07/22 18:12 12/08/22 10:40 Lorazepam Inj (*Crx) 2 Mg/Ml Vial IV PUSH 1 mg Q6H PRN Administration Anxiety Nicotine 1 patch 12/08/22 09:00 12/12/22 08:31 Nicotine (*Pbkc) 21 Mg Patch TRANSDERM Not Given QAM GALLO Ondansetron HCl 4 mg 12/07/22 18:14 Ondansetron Inj 4 Mg/2 Ml Vial IV PUSH Q6H PRN Nausea And Vomiting Pantoprazole Sodium 40 mg 12/12/22 09:00 12/12/22 08:30 Pantoprazole 40 Mg Tablet PO 40 mg QAM GALLO
[2022-12-12 16:25] LABS: Glucose Point of Care 134 mg/dl (65-105)
[2022-12-13] VITALS: PULSE 97
[2022-12-13 03:00] VITALS: BP 127/71; PULSE 97; RESP 18; TEMP 36.6; O2SAT 95
[2022-12-13 04:00] VITALS: PULSE 94
[2022-12-13 05:33] LABS: Glucose Point of Care 132 mg/dl (65-105)
[2022-12-13 06:36] LABS: Hematocrit 33.2 % (42.0-52.0); Hemoglobin 11.6 g/dL (14.0-18.0); Mean Corpuscular HGB Conc 34.9 g/dl (32-36); Mean Corpuscular Hemoglobin 35.8 pg (26-34); Mean Corpuscular Volume 102.5 fl (80-100); Mean Platelet Volume 9.5 fl (7.4-10.4); Platelet Count Result 201 k/mm3 (150-375); Red Blood Count 3.24 M/mm3 (4.6-6.20); Red Cell Distribution Width 15.5 % (11.5-14.5); White Blood Count 13.7 K/mm3 (4.5-10.0)
[2022-12-13 06:50] LABS: Alanine Aminotransferase 24 U/L (6-50); Albumin Level 3.1 g/dL (3.5-5.1); Alkaline Phosphatase 77 U/L (38-126); Anion Gap 0 mmol/L (8-16); Aspartate Amino Transferase 33 U/L (17-59); Blood Urea Nitrogen 13 mg/dL (9-20); Calcium 7.6 mg/dL (8.4-10.2); Carbon Dioxide 27 mmol/L (22-30); Chloride 108 mmol/L (98-107); Estimated CRCL calculation 111 ml/min; Estimated Glomerular Filt Rate > 60; Glucose 127 mg/dL (65-110); Lipase 71 U/L (23-300); Potassium 3.7 mmol/L (3.4-5.0); Sodium 135 mmol/L (137-145)
[2022-12-13 08:00] VITALS: PULSE 100; PULSE 93
--- NOTE | 2022-12-13 08:02 | WPDGIPROGNO ---
Progress Note: A&P Assessment and Plan (1) Acute alcoholic pancreatitis: Code(s): K85.20 - Alcohol induced acute pancreatitis without necrosis or infection Status: Acute Assessment and Plan: tolerating more diet but still with similar pain CT abdomen showed necrotizing pancreatitis and possible early developing pseudocyst surgery on board (2) Leukocytosis: Code(s): D72.829 - Elevated white blood cell count, unspecified Status: Acute Assessment and Plan: probably from pancreatitis (3) Elevated liver enzymes: Code(s): R74.8 - Abnormal levels of other serum enzymes Status: Acute Assessment and Plan: bili has been stable at 2, normal liver enzymes from pancreatitis (4) Upper abdominal pain: Code(s): R10.10 - Upper abdominal pain, unspecified Status: Acute Assessment and Plan: persistent he will need follow-up at tertiary center given extensive pancreatic inflammation Subjective Date/time seen: 12/13/22 08:02 Interval history: still with similar pain but comfortable, no nausea, eating some Review of Systems Review of Systems: All systems reviewed & are unremarkable except as noted in HPI and below Exam Const: General: awake Orientation/consciousness: patient oriented x3 HENMT: Face/Nose/Sinus: Normal nares present Eyes: General: appearance normal, both eyes and all related structures Neck: Neck: supple Resp: Effort & Inspection: normal respiratory effort Auscultation: clear to auscultation bilaterally Cardio: Rhythm: regular rhythm GI: Inspection: non-distended GI Palp: Yes Soft to palpation and Yes Tenderness to palpation present (GI) (less tender) Auscultation: normal bowel sounds Skin: General skin exam: normal color Neuro: General: moves all extremities Motor exam (neuro): 5/5 motor strength present throughout Extrem: General: normal to inspection, no calf tenderness and no edema Psych: Mental Status: mental status grossly normal Insight: Good insight present (Psych) Objective Data Vital Signs Vital Signs: Vital Signs - 24 hr 12/12/22 15:29 12/12/22 12:00 12/12/22 16:00 Temperature 98.3 F Pulse Rate 117 H 132 H 107 H Pulse Rate [Right Monitor] Respiratory Rate 18 Blood Pressure 117/76 Pulse Oximetry 95 Oxygen Delivery 12/12/22 19:00 12/12/22 20:00 12/12/22 20:00 Temperature 98.6 F Pulse Rate 106 H Pulse Rate [Right Monitor] 93 Respiratory Rate 14 Blood Pressure 126/72 126/72 Pulse Oximetry 93 Oxygen Delivery Room Air 12/12/22 20:00 12/13/22 00:00 12/13/22 03:00 Temperature 97.8 F Pulse Rate 102 H 97 97 Pulse Rate [Right Monitor] Respiratory Rate 18 Blood Pressure 127/71 Pulse Oximetry 95 Oxygen Delivery 12/13/22 04:00 Temperature Pulse Rate 94 Pulse Rate [Right Monitor] Respiratory Rate Blood Pressure Pulse Oximetry Oxygen Delivery Intake/Output Intake/Output: Intake & Output 12/10/22 12/11/22 12/12/22 12/13/22 23:59 23:59 23:59 23:59 Intake Total 4252 3098 1950 222 Output Total 304 775 Balance 4252 2794 1175 222 Meds/Results Medications: Active Medications Generic Name Dose Route Start Last Admin Trade Name Freq PRN Reason Stop Dose Admin Hydrocodone Bitart/Acetaminophen 1 tab 12/11/22 10:41 12/12/22 22:08 Hydrocodone/Acetaminophen (*Crx) 5-325 Mg Tablet PO 1 tab Q4H PRN Administration Pain Rated 4-6 Chlordiazepoxide HCl 25 mg 12/09/22 14:08 Chlordiazepoxide (*Crx) 25 Mg Capsule PO Q6H PRN Withdrawal Diphenhydramine HCl 25 mg 12/07/22 19:06 Diphenhydramine Hcl Inj 50 Mg/Ml Vial IV PUSH Q4H PRN Itching Enoxaparin Sodium 40 mg 12/09/22 09:00 12/12/22 08:31 Enoxaparin 40 Mg/0.4 Ml Syringe SUB-Q 40 mg DAILY GALLO Administration Folic Acid 1 mg 12/12/22 09:00 12/12/22 08:30 Folic Acid 1 Mg Tablet PO 1 mg DAILY GALLO Administration Lactated
[2022-12-13 08:05] LABS: Glucose Point of Care 128 mg/dl (65-105)
[2022-12-13] MEDS: ENOXAPARIN 40 MG/0.4 ML SYRINGE SUB-Q (08:05)
[2022-12-13] MEDS: THIAMINE HCL 100 MG TABLET PO (08:05)
[2022-12-13] MEDS: PANTOPRAZOLE 40 MG TABLET PO (08:05)
[2022-12-13] MEDS: FOLIC ACID 1 MG TABLET PO (08:05)
[2022-12-13] MEDS: HYDROcodone/acetaminophen (*CRX) 5-325 MG TABLET 1 TAB PO ×2 (08:11→11:29)
[2022-12-13 08:12] LABS: Band Neutrophils Percent 5 % (0-6); Lymphocytes Absolute Manual 1.91 K/mm3 (1.1-4.5); Metamyelocytes Percent 1 %; Monocytes Absolute Manual 0.95 K/mm3 (0.1-0.90); Monocytes Percent Manual 7 % (3-9); Neutrophils Absolute Manual 10.68 K/mm3 (1.3-6.7); Neutrophils Percent Manual 73 % (46-73); Platelet Estimate Adequate (Adequate); Schistocytes None Seen (NORMAL); Total Cells Counted 100
[2022-12-13] MEDS: POTASSIUM CHLORIDE 20 MEQ TABLET.ER 40 MEQ PO (11:28)
--- NOTE | 2022-12-13 11:33 | PM.DS ---
DS: Admitting Diagnosis Discharge Date December 13, 2022 Admitting Diagnosis Pancreatitis DS: Discharge Diagnosis Discharge Diagnosis (1) Acute alcoholic pancreatitis: Code(s): K85.20 - Alcohol induced acute pancreatitis without necrosis or infection Status: Acute Assessment and Plan: tolerating more diet but still with similar pain CT abdomen showed necrotizing pancreatitis and possible early developing pseudocyst Spoke with GI regarding this. Patient can be discharged since labs improved and he is tolerating a diet and will need follow-up with GI and also up with [facility]. (2) Leukocytosis: Code(s): D72.829 - Elevated white blood cell count, unspecified Status: Acute Assessment and Plan: probably from pancreatitis (3) Elevated liver enzymes: Code(s): R74.8 - Abnormal levels of other serum enzymes Status: Acute Assessment and Plan: bili has been stable at 2, normal liver enzymes from pancreatitis (4) Upper abdominal pain: Code(s): R10.10 - Upper abdominal pain, unspecified Status: Acute Assessment and Plan: persistent he will need follow-up at tertiary center given extensive pancreatic inflammation Plan Acute pancreatitis with possible infected necrosis and peripancreatic fluid collection Lipase improved Low-fat diet GI and Gen surgery consulted Repeat Ct noted, await further recs by GI Alcohol abuse continue [facility] protocol Librium ordered Counseled Tobacco abuse Counseled about cessation Hypokalemia replaced, serum mag and potassium monitor DVT prophylaxis DS: Summary Hospital Course Hospital Course: Patient is a 52-year-old male came with alcoholic pancreatitis. He was treated conservatively and improved. Lipase is much improved. He is tolerating a low-fat diet. This will need to be continued on discharge. To note patient did have follow-up CT scan was shots of some early possible necrosis. GI was evaluating the patient and recommended follow-up in the clinic and also follow-up in [facility] for further evaluation management. Otherwise labs have improved significantly he is tolerating a diet and will be given pain control on discharge. Time Spent with Patient Time attestation: Total time spent providing and/or coordinating discharge services: Exam Narrative: GENERAL: Appears to be extremely uncomfortable in abdominal pains HEAD:? Normal with no signs of head trauma. EYES:? EOMI, conjunctiva normal ENT:? Hearing grossly intact LUNGS:? Nonlabored breathing. HEART:? [Regular rate and rhythm] ABD:? [Soft], [tender to palpation] to epigastric area and periumbilical region EXT: Normal range of motion SKIN:? [No rashes or lesions.] NEURO: [Alert and oriented x 3. No gross focal sensory or strength deficits.] Const: General: cooperative, healthy appearing, comfortable, no acute distress, well developed, alert, awake, Physically active, average body habitus and well nourished Nutritional Appearance: average body habitus and well nourished Orientation/consciousness: oriented to person, oriented to place, oriented to time and patient oriented x3 Limitations: no limitations HENMT: Head: normal to inspection, No palpable skull fracture present, normocephalic, atraumatic and abrasion Ears: hearing grossly normal bilaterally and external ears normal Face/Nose/Sinus: Normal external nose present and Normal nares present Eyes: General: appearance normal, both eyes and all related structures Alignment and Position: alignment normal Periorbital: periorbital findings normal Eyelids: eyelids normal Sclera: sclerae normal Pupils: Equal, round and reactive pupils present EOM: EOMs intact bilaterally Neck: Neck: normal visual inspection, full ROM, no lymphadenopathy, trachea midline and supple Chest: Chest palpation & inspection: normal inspection of the chest Resp: Effort & Inspection: normal res
[2022-12-13 12:00] VITALS: PULSE 105
--- NOTE | 2022-12-13 12:49 | PCNWS ---
Weekly nutritional screen. Patient is tolerating current diet with improved intake. No weight loss reported. No nutritional needs at this time. Talked to patient about need for low fat diet after discharge for pancreatitis.
== END 2022-12-13 13:25 | disposition home or self-care (01) | DRG 440 ==
LOC: ANHED 15:52 → ANH3MEDSUR 16:26
PROVIDERS: Family Medicine; Internal Medicine; Internal Medicine Gastroenterology; Nurse Practitioner; Nurse Practitioner Family; Surgery; Admitting Provider Internal Medicine; Emergency Provider Emergency Medicine; PCP Family Medicine; Visit Provider Chiropractor
DX: K85.22 Alcohol induced acute pancreatitis with infected necrosis (principal); Z20.822 Contact with and (suspected) exposure to COVID-19; E87.6 Hypokalemia; F10.20 Alcohol dependence, uncomplicated; D72.829 Elevated white blood cell count, unspecified; F43.10 Post-traumatic stress disorder, unspecified; F17.210 Nicotine dependence, cigarettes, uncomplicated
CPT/HCPCS: 36415; 71275; 74174; 74177; 80048; 80053; 80074; 82948; 83605; 83690; 83735; 84100; 84439; 84443; 84480; 85025; 85027; 85055; 87040; 87637; 93005; 96361; 96374; 96375; 99285; A9270; C9113; J1170; J1200; J1650; J1885; J1956; J2060; J2270; J2405; J3411; J3480; J7040; J7120; Q9967

== ENCOUNTER 2023-01-13 12:54 | Outpatient (CLI) | payer OTHER, SELFPAY ==
[2023-01-13 13:44] LABS: Hematocrit 39.4 % (42.0-52.0); Hemoglobin 12.7 g/dL (14.0-18.0); Mean Corpuscular HGB Conc 32.2 g/dl (32-36); Mean Corpuscular Hemoglobin 32.8 pg (26-34); Mean Corpuscular Volume 101.8 fl (80-100); Mean Platelet Volume 9.1 fl (7.4-10.4); Platelet Count Result 429 k/mm3 (150-375); Red Blood Count 3.87 M/mm3 (4.6-6.20); Red Cell Distribution Width 14.6 % (11.5-14.5); White Blood Count 7.5 K/mm3 (4.5-10.0)
[2023-01-13 14:02] LABS: Alanine Aminotransferase 29 U/L (6-50); Albumin Level 3.9 g/dL (3.5-5.1); Alkaline Phosphatase 102 U/L (38-126); Anion Gap 6 mmol/L (8-16); Aspartate Amino Transferase 28 U/L (17-59); Bilirubin,Total 0.5 mg/dL (0.2-1.3); Blood Urea Nitrogen 5 mg/dL (9-20); Calcium 8.8 mg/dL (8.4-10.2); Carbon Dioxide 28 mmol/L (22-30); Chloride 103 mmol/L (98-107); Estimated Glomerular Filt Rate > 60; Glucose 119 mg/dL (65-110); Lipase 95 U/L (23-300); Potassium 3.6 mmol/L (3.4-5.0); Sodium 137 mmol/L (137-145)
== END 2023-01-13 12:55 | disposition home or self-care (01) ==
PROVIDERS: PCP Family Medicine; Visit Provider Internal Medicine Gastroenterology
DX: K85.20 Alcohol induced acute pancreatitis without necrosis or infection (principal); R10.10 Upper abdominal pain, unspecified
CPT/HCPCS: 36415; 80053; 83690; 85027

== ENCOUNTER 2023-01-31 06:53 | Outpatient (CLI) | payer OTHER, SELFPAY ==
--- NOTE | ~2023-01-31 | MR_ITS ---
EXAMINATION: MR MRCP wo/w con/w 3D wo ind DATE: 01/31/2023 07:58 INDICATION: Severe pancreatitis. TECHNIQUE: Magnetic resonance imaging (MRI) of the abdomen was performed without and with 16 mL Multi Constanza intravenous contrast. Sequences included coronal T2-weighted FS FSE, coronal T2-weighted FSE, a xial T1-weighted LAVA, coronal FS FIESTA, axial dual-echo T1-weighted SPGR, coronal lava-FLEX, sagitt al T2-weighted FSE, axial T2-weighted FSE, and axial DWI. Thick-slab T2-weighted FSE images were obta ined for magnetic resonance cholangiopancreatography (MRCP). Maximum intensity projection 3-D reconst ructions of the volumetric data were created by the technologist. Postcontrast sequences included cor onal LAVA-flex and time course of axial T1-weighted LAVA. COMPARISON: CT abdomen and pelvis 12/12/2022 FINDINGS: ABDOMEN MRI: The lungs demonstrate mild atelectasis. There is diffuse hepatic steatosis. There are cy sts in the liver measuring up to 5 mm. There is sludge in the gallbladder, which is normal in size. T he spleen, pancreas, and left adrenal gland are normal. There are cysts in right kidney measuring up to 7 mm. There is volume loss of the head and body of the pancreas. There is material of mixed signal intensity around the pancreas and extending along the posterior pararenal fascia, consistent with ne crosis. There is a 3.4 x 2.6 cm fluid collection near the tail of the pancreas, consistent with alf d off necrosis. There is a 4.2 x 2.4 cm collection centered at the left posterior pararenal fascia, c onsistent with walled off necrosis. There is a large volume of ascites. There are no dilated loops of bowel. There is nonocclusive thrombus in the splenic vein. ABDOMEN MRCP: The common duct is normal and measures 6 mm. No choledocholithiasis. IMPRESSION: 1. Necrotizing pancreatitis with areas of walled-off necrosis. 2. Large volume of ascites. 3. Nonocclusive thrombus in the splenic vein. 4. Diffuse hepatic steatosis. Reviewed, dictated and finalized at location A.
== END 2023-01-31 06:54 | disposition home or self-care (01) ==
PROVIDERS: PCP Family Medicine; Visit Provider Internal Medicine Gastroenterology
DX: R18.8 Other ascites (principal); K76.0 Fatty (change of) liver, not elsewhere classified; K85.91 Acute pancreatitis with uninfected necrosis, unspecified
CPT/HCPCS: 74183; 76376; A9577